=== PATIENT | male | born 1955 | race Hispanic/Latino ===

== ENCOUNTER 2017-03-29 13:41 | Emergency (ER) | payer OTHER ==
[2017-03-29] MEDS ORDERED: Sterile Water 10 ML ONE (16:47)
[2017-03-29] MEDS ORDERED: methylPREDNISolone Sod Succ/PF 125 MG/2 ML VIAL ONE (16:47)
--- NOTE | 2017-03-29 16:52 | RAD ---
RADIOGRAPH CHEST 2 VIEWS: HISTORY: 61-year-old male with acute cough. FINDINGS: There is hyperinflation of the lungs, consistent with COPD. There is no evidence of air space densit y, pneumothorax, or pulmonary edema. There is no cardiomegaly or pleural effusion. There is a small left upper lobe pulmonary scar close to the pleural surface. There are mild right apical chronic pulm onary changes. There is no interval change overall since 08-22-12. IMPRESSION: 1) No acute cardiopulmonary findings. 2) Emphysema. rae POS: [facility]
[2017-03-29 16:56] LABS: #Basophils 0.1 thou/uL (0.0-0.2); #Lymphocytes 2.2 thou/uL (1.20-3.40); #Monocytes 1.1 thou/uL (0.11-0.59); #Neutrophils 4.6 thou/uL (1.40-6.50); %Basophils 0.9 % (0.0-1.0); %Eosinophils 0.3 % (0.0-10.0); %Monocytes 13.8 % (0.0-10.0); Hemoglobin 13.6 g/dL (14.0-18.0); Mean Corpuscular HGB CONC 33.8 g/dL (32.0-36.0); Mean Corpuscular Hemoglobin 33.3 pg (27.0-31.0); Mean Corpuscular Volume 98.5 fl (80.0-94.0); Mean Platelet Volume 7.5 fL (7.4-10.4); Platelet Count 275 thou/uL (130-400); RBC Distribution Width 11.4 % (11.5-14.5); Red Blood Cell (RBC) Count 4.07 mill/uL (4.70-6.10)
[2017-03-29 17:15] LABS: CKMB 0.7 ng/mL (0-6.6); Troponin I 0.021 ng/mL (< 0.028)
[2017-03-29 18:04] LABS: ALT (SGPT) 7 U/L (8-55); AST (SGOT) 24 U/L (5-34); Albumin 3.9 g/dL (3.4-4.8); Alkaline Phosphatase 42 U/L (40-150); Anion Gap 14 mmol/L (10-20); BUN (Urea Nitrogen) 32 mg/dL (8.4-25.7); Bilirubin, Total 0.3 mg/dL (0.2-1.2); CK (CPK) 29 U/L (30-200); Calc. Creatinine Clearance 0 mL/min (70-130); Carbon Dioxide 23 mmol/L (23-31); Chloride 94 mmol/L (98-107); Estimated GFR-MDRD 31; Globulin 3.1 g/dL (2.4-3.5); Glucose 92 mg/dL (80-115); Potassium 3.2 mmol/L (3.5-5.1); Sodium 128 mmol/L (136-145)
--- NOTE | 2017-04-03 15:36 | EKG ---
Test Reason : CP Blood Pressure : / mmHG Vent. Rate : 091 BPM Atrial Rate : 091 BPM P-R Int : 120 ms QRS Dur : 084 ms QT Int : 394 ms P-R-T Axes : 054 030 074 degrees QTc Int : 484 ms Normal sinus rhythm Normal ECG Confirmed by IDANIA TYLER, LAVINIA ([id number]), field map editor PANTERA MCGINNIS ([id number]) on 04/03/2017 3:35:42 PM Referred By: Confirmed By:LAVINIA EMERSON MD
== END 2017-03-29 20:01 | disposition home or self-care (01) ==
LOC: ERS 13:41
DX: J20.9 Acute bronchitis, unspecified (principal); E86.0 Dehydration; N28.9 Disorder of kidney and ureter, unspecified; K21.9 Gastro-esophageal reflux disease without esophagitis
CPT/HCPCS: 36415; 71046; 80053; 82553; 83605; 83880; 84484; 85025; 87804; 93005; 94640; 96361; 96374; A4216; J2930; J7620

== ENCOUNTER 2019-05-16 09:27 | Emergency (ER) | payer OTHER ==
[2019-05-16 10:27] LABS: #Eosinphils 0.1 thou/uL (0.0-0.7); #Lymphocytes 0.9 thou/uL (1.20-3.40); #Monocytes 0.8 thou/uL (0.11-0.59); #Neutrophils 7.9 thou/uL (1.40-6.50); %Basophils 0.4 % (0.0-1.0); %Eosinophils 0.7 % (0.0-10.0); %Lymphocytes 9.1 % (21.0-51.0); %Monocytes 8.6 % (0.0-10.0); %Neutrophils 81.1 % (42.0-75.0); Hemoglobin 9.7 g/dL (14.0-18.0); Mean Corpuscular HGB CONC 34.1 g/dL (32.0-36.0); Mean Corpuscular Hemoglobin 34.1 pg (27.0-31.0); Platelet Count 382 thou/uL (130-400); RBC Distribution Width 11.9 % (11.5-14.5); Red Blood Cell (RBC) Count 2.85 mill/uL (4.70-6.10); White Blood Cell (WBC) Count 9.7 thou/uL (4.8-10.8)
[2019-05-16 10:40] LABS: ALT (SGPT) 8 U/L (8-55); AST (SGOT) 17 U/L (5-34); Albumin 3.3 g/dL (3.4-4.8); Alkaline Phosphatase 92 U/L (40-110); Anion Gap 15 mmol/L (10-20); BUN (Urea Nitrogen) 26 mg/dL (8.4-25.7); Bilirubin, Total 0.2 mg/dL (0.2-1.2); Calc. Creatinine Clearance 0 mL/min (70-130); Calcium 8.7 mg/dL (7.8-10.44); Carbon Dioxide 22 mmol/L (23-31); Chloride 93 mmol/L (98-107); Estimated GFR-MDRD 24; Globulin 3.9 g/dL (2.4-3.5); Glucose 81 mg/dL (80-115); Lipase 48 U/L (8-78); Potassium 3.7 mmol/L (3.5-5.1); Protein, Total 7.2 g/dL (5.8-8.1); Sodium 126 mmol/L (136-145)
[2019-05-16 11:10] LABS: Bacteria/HPF 4+ HPF (None Seen); Bilirubin Negative (Negative); Blood, Urine 2+ (Negative); Clarity Extra Turbid (Clear); Glucose, Urine (Dipstick) Normal (Negative); Leukocyte 500 Leu/uL (Negative); Nitrite Negative (Negative); Protein, Urine (Dipstick) 70 mg/dL (Neg-Trace); RBC/HPF Greater than 50 HPF (0-3); Squamous Epithelial None Seen HPF (0-3); Urobilinogen Normal mg/dL (Less than 2); WBC/HPF Greater than 50 HPF (0-3)
--- NOTE | 2019-05-16 11:52 | CT ---
CT Abdomen Pelvis WO Con 05/16/2019 11:12 AM HISTORY: Abdominal pain and diarrhea as well as vomiting for past 3 weeks. Patient reports rib pain after a fa ll. Trauma. COMPARISON: 10/03/2008 Technique: Multiple contiguous axial CT images are obtained through the abdomen and pelvis without IV contrast. Coronal reformats are provided. FINDINGS: This examination is limited for the evaluation of solid organs and vascular structures due to the lac k of intravenous contrast. Lower Chest: Visualized lung bases are clear. Vascular calcifications are seen in the coronary arteri es as well as visualized thoracic aorta. Small hiatal hernia is seen. Abdomen: Liver: Grossly normal non-enhanced CT appearance. Gallbladder: Within normal limits for CT imaging. Pancreas: Grossly normal nonenhanced CT appearance. Spleen: Grossly normal nonenhanced CT appearance. Adrenals: Grossly normal nonenhanced CT appearance. Kidneys: Renal cortical scarring bilaterally greater on the left. Extrarenal pelvis present on the ri ght with mild caliectasis, but this is likely attributable to distended urinary bladder. There is no overt hydronephrosis present. No renal calculi are seen. A subcentimeter too small to characterize hypodense lesion is seen in the inferior pole left kidney. Ureters: Right ureter is mildly prominent, but no ureteral calculus is seen. Ureteral prominence is l ikely attributable to the distended urinary bladder. Pelvis: Urinary bladder: The urinary bladder is distended and extends to the level of the L5 vertebral body. Cortes of the urinary bladder are also mildly thickened. This is nonspecific but can be seen with cystitis. Reproductive Organs: Calcifications are seen in the prostate gland. Lymph Nodes: No enlarged lymph nodes. Bowel: A few scattered colonic diverticula are seen. Loops of small bowel are normal in caliber. Appendix: Not visualized, but no secondary signs to suggest appendicitis are noted. Peritoneum: No free fluid, free air, or fluid collection. Retroperitoneum: within normal limits. Vessels: Vascular calcifications are seen in the abdominal aorta and involving the iliac arteries.. Abdominal Wall: within normal limits. Bones: Degenerative changes are seen in the spine. IMPRESSION: 1. Mild caliectasis on the right as well as mild dilatation of the right ureter. The urinary bladder is distended and likely accounts for this finding. No overt hydronephrosis is present. 2. Renal cortical scarring bilaterally. 3. Distention of the urinary bladder, and the cortes of the urinary bladder also mildly thickened. Thi s is nonspecific but can be seen with cystitis. 4. Small hiatal hernia. 5. Vascular calcifications. 6. No renal or ureteral calculi.
[2019-05-16] MEDS ORDERED: Morphine 4 MG/ML VIAL ONE (12:26)
[2019-05-16] MEDS ORDERED: Ondansetron PF 4 MG/2 ML Vial ONE (12:26)
--- NOTE | 2019-05-16 12:27 | RAD ---
CHEST 1 VIEW: Date: 05/16/2019 HISTORY: Pain. Vomiting. COMPARISON: 03/29/2017. FINDINGS: Atherosclerosis of aorta. Normal cardiac silhouette. Pulmonary vessels and hilum are normal. Costophr enic angles are clear. Hyperinflation, without consolidation or mass. No pneumothorax. Post-traumatic changes to the left ribs and right clavicle are noted. IMPRESSION: 1. Atherosclerosis. 2. Hyperinflation. 3. No acute process. POS: [facility]
[2019-05-16] MEDS ORDERED: CEFAZOLIN 1 GM VIAL ONE (14:08)
== END 2019-05-16 14:20 | disposition home or self-care (01) ==
LOC: ERS 09:27
DX: S22.31XA Fracture of one rib, right side, initial encounter for closed fracture (principal); N39.0 Urinary tract infection, site not specified; E87.1 Hypo-osmolality and hyponatremia; F10.10 Alcohol abuse, uncomplicated; K21.9 Gastro-esophageal reflux disease without esophagitis; W18.30XA Fall on same level, unspecified, initial encounter
CPT/HCPCS: 36415; 71045; 74176; 80053; 81003; 81015; 82274; 83690; 84484; 85025; 93005; 96374; 96375; J0690; J2270; J2405

== ENCOUNTER 2019-05-19 09:08 | Inpatient (IN) | payer OTHER ==
[2019-05-19 09:39] LABS: #Eosinphils 0.1 thou/uL (0.0-0.7); #Lymphocytes 0.8 thou/uL (1.20-3.40); #Neutrophils 9.1 thou/uL (1.40-6.50); %Basophils 0.4 % (0.0-1.0); %Eosinophils 1.1 % (0.0-10.0); %Monocytes 8.7 % (0.0-10.0); %Neutrophils 82.9 % (42.0-75.0); Hemoglobin 9.4 g/dL (14.0-18.0); Mean Corpuscular HGB CONC 34.5 g/dL (32.0-36.0); Mean Corpuscular Hemoglobin 34.4 pg (27.0-31.0); Mean Corpuscular Volume 99.8 fL (78.0-98.0); Mean Platelet Volume 5.5 fL (7.4-10.4); Platelet Count 306 thou/uL (130-400); RBC Distribution Width 11.8 % (11.5-14.5); Red Blood Cell (RBC) Count 2.74 mill/uL (4.70-6.10)
[2019-05-19 09:51] LABS: Nitrite Negative (Negative); Protein, Urine (Dipstick) > or equal to 300 mg/dL (Neg-Trace)
[2019-05-19 09:54] LABS: Clarity Opaque (Clear)
[2019-05-19 10:05] LABS: ALT (SGPT) 8 U/L (8-55); AST (SGOT) 20 U/L (5-34); Albumin 3.4 g/dL (3.4-4.8); Alkaline Phosphatase 109 U/L (40-110); Anion Gap 13 mmol/L (10-20); BUN (Urea Nitrogen) 20 mg/dL (8.4-25.7); Bilirubin, Total 0.3 mg/dL (0.2-1.2); Calc. Creatinine Clearance 0 mL/min (70-130); Calcium 8.6 mg/dL (7.8-10.44); Carbon Dioxide 23 mmol/L (23-31); Chloride 93 mmol/L (98-107); Estimated GFR-MDRD 25; Globulin 3.9 g/dL (2.4-3.5); Glucose 79 mg/dL (80-115); Potassium 4.3 mmol/L (3.5-5.1); Protein, Total 7.3 g/dL (5.8-8.1); Sodium 125 mmol/L (136-145)
[2019-05-19 10:13] LABS: Bilirubin Unable to Interpret (Negative); Blood, Urine Large (Negative); Glucose, Urine (Dipstick) Unable to Interpret mg/dL (Negative); Urobilinogen UNABLE TO INTERPRET mg/dL (Less than 2)
[2019-05-19 10:14] LABS: Leukocyte Small Leu/uL (Negative); RBC/HPF Greater than 50 HPF (0-3)
[2019-05-19 10:15] LABS: Bacteria/HPF None Seen HPF (None Seen)
[2019-05-19 10:16] LABS: Squamous Epithelial None Seen HPF (0-3)
--- NOTE | 2019-05-19 11:18 | CT ---
CT Stone Protocol 05/19/2019 10:49 AM HISTORY: Blood and pain when urinating. COMPARISON: 05/16/2019 Technique: Multiple contiguous axial CT images are obtained through the abdomen and pelvis without IV contrast. Coronal reformats are provided. FINDINGS: This examination is limited for the evaluation of solid organs and vascular structures due to the lac k of intravenous contrast. Lower Chest: Vascular calcification are seen in the coronary arteries. Hiatal hernia is again present . Lung bases are clear. Abdomen: Liver: Grossly normal non-enhanced CT appearance. Gallbladder: Within normal limits for CT imaging. Pancreas: Grossly normal nonenhanced CT appearance. Spleen: Grossly normal nonenhanced CT appearance. Adrenals: Grossly normal nonenhanced CT appearance. Kidneys: Bilateral [id number] hydronephrosis is present. No renal or ureteral calculi are seen bilaterally. There is renal cortical scarring seen bilaterally greater on the left. Ureters: Mild to moderate bilateral hydroureter which extends to the level of the urinary bladder.. Pelvis: Urinary bladder: Distended and extends to the L4-5 level. There is mild wall thickening of the urinar y bladder, but the urinary bladder wall thickening is less conspicuous compared to the prior exam which could be related to greater degree of distention. Reproductive Organs: Prostate calcifications are identified. Lymph Nodes: No enlarged lymph nodes. Bowel: There is colonic diverticulosis with a few phleboliths seen in the ascending colon. Loops of s mall bowel are normal in caliber. Appendix: Not definitely visualized. Peritoneum: No free fluid, free air, or fluid collection. Retroperitoneum: within normal limits. Vessels: Dense vascular calcifications are seen in the abdominal aorta and involving the iliac arteri es as well as involving the proximal renal arteries and mesenteric vessels.. Abdominal Wall: within normal limits. Bones: Degenerative changes seen in the spine. IMPRESSION: 1. Moderate bilateral hydronephrosis greater on the right with associated hydroureter. Ureters are di lated down to the level of the urinary bladder, and the urinary bladder is also prominently distended with the superior aspect of the urinary bladder extending to the L4-5 level. The hydronephr osis and hydroureter may be attributable to the distended urinary bladder. No renal or ureteral calculi are seen bilaterally. 2. Dense vascular calcifications. 3. Colonic diverticulosis 4. Small hiatal hernia.
[2019-05-19 11:45] LABS: PTT 37.3 SEC (22.9-36.1); Prothrombin Time 13.1 SEC (12.0-14.7)
[2019-05-19] MEDS ORDERED: cefTRIAXone\\ROCEPHIN 2 GM VIAL ONE (14:35)
[2019-05-19] MEDS ORDERED: Sodium Chloride 0.9% 100 ML ONE (14:36)
[2019-05-19] MEDS ORDERED: Adacel (T-DAP) 0.5 ML SYRINGE ONE (17:31)
[2019-05-19] MEDS ORDERED: Acetaminophen 500 MG TAB PO PRN (17:42)
[2019-05-19] MEDS ORDERED: Lorazepam 0.5 MG TAB PO PRN (17:42)
[2019-05-19] MEDS ORDERED: Labetalol HCl 100 MG/20 ML VIAL SLOW IVP PRN (17:42)
[2019-05-19] MEDS ORDERED: Ondansetron ODT 4 MG TAB PO PRN (17:42)
[2019-05-19] MEDS: cefTRIAXone\\ROCEPHIN 2 GM in Sodium Chloride 0.9% 100 ML IVPB SCH (18:16)
[2019-05-19] MEDS: Sodium Chloride 0.9% 1,000 ML IV SCH (18:17)
--- NOTE | 2019-05-19 18:35 | CON ---
DATE OF CONSULTATION: 05/19/2019 CONSULTING: Emergency Medicine. CONSULTED: Dr. Tan. REASON FOR CONSULTATION: Gross hematuria and urinary retention. HISTORY OF PRESENT ILLNESS: Mr. Farley is a 63-year-old white male, whom I had previously seen in 2017 for urinary issues, who presented to the emergency room with gross hematuria and inability to urinate. When I had seen him previously back in 2017, he had issues regarding weak stream with incomplete bladder emptying along with severe urgency and frequency along with urge incontinence both day and night. I had put him on Flomax at that time, which had helped his symptoms, but did not completely alleviate his symptoms at that time. He is no longer taking the Flomax secondary to running out and not following up with me in the office. When I had done urodynamics on him in the office at that time, he had demonstrations of a poorly compliant bladder with severe bladder outlet obstruction along with severe detrusor overactivity and urge incontinence. He also had unilateral mild hydronephrosis secondary to loss of his bladder compliance and obstruction. I had recommended a transurethral vaporization of the prostate at that time, and we had scheduled the procedure to be done. However, the patient became scared of the surgery and ultimately canceled and did not follow up with me thereafter. I had no contact with the patient until he presented to the emergency room today with complaints of a several-day history of worsening suprapubic pressure, abdominal pain, malaise, not feeling well along with discharging bloody urine. He had a CT scan done in the emergency room demonstrating a significantly distended bladder along with bilateral hydronephrosis with bladder wall thickening. A Muhammad catheter was placed by a nursing staff with release of approximately 600 mL of dark red bloody urine with clots. I was then consulted for further assistance regarding his issues. Currently, the patient states he is having a lot of discomfort in his pelvis. He is still having bladder spasms. His urine is grossly bloody. There does appear to be bloody urine in the tubing. He states that he is not taking the Flomax anymore, but has been having a lot of difficulty with urination recently along with urgency and frequency as well. He continues to have incontinence. CURRENT MEDICATIONS: 1. Amlodipine 5 mg p.o. daily. 2. Flomax 0.4 mg p.o. q.h.s. (currently not taking). PAST MEDICAL HISTORY: 1. Chronic kidney disease. 2. Gastroesophageal reflux disease. 3. History of tuberculosis. 4. Esophageal stricture. 5. Pyelonephritis history. 6. History of hyponatremia. 7. History of alcohol abuse. 8. History of BPH. PAST SURGICAL HISTORY: 1. Appendectomy. 2. Cholecystectomy. 3. Gallbladder tube placement. 4. Right wrist surgery. 5. Leg surgeries on the left and right. FAMILY HISTORY: Significant for cardiovascular disease. Otherwise, no other urologic issues. SOCIAL HISTORY: The patient does not smoke, but drinks alcohol in high volumes consistent with alcohol abuse. He denies any illicit drug use. ALLERGIES: NONE. REVIEW OF SYSTEMS: A 12-point review of systems was reviewed with the patient and negative other than what was commented on the HPI. PHYSICAL EXAMINATION: VITAL SIGNS: The patient's temperature is 98.4, heart rate of 120, blood pressure 129/78, respirations 18, and saturations 94% on room air. GENERAL: Appears slightly uncomfortable, but communicative and alert, appears stated age, well nourished, well developed, answering questions appropriately. HEENT: Normocephalic, atraumatic. Pupils are symmetric and round. Sclerae are nonicteric. Moist mucous membranes. Trachea midline. CARDIOVASCULAR: Sinus tachycardia. Regular rhythm. Normal S1 and S2. Symmetric pulses. CHEST: No increased work of breathing, symmetric expansion of the lungs. Clear anteriorly. ABDOMEN: Soft, nondistended, tender to palpation in the suprapubic area. No obvious organomegaly. Prior well-healed abdominal scars without hernia. No masses. No rebound or guarding. GENITOURINARY: There is a Muhammad catheter in place, approximately 18-Brazilian three-way catheter with an extended amount of tubing hanging outside the patient's penis indicating that the balloon is likely not in the right location. There is dark maroon colored blood in the tubing and dark maroon colored bloody urine in the catheter drainage bag. Testicles are bilaterally descended. The patient is uncircumcised. Penis is nonfocal. Rectal exam is deferred at this time. EXTREMITIES: No clubbing, cyanosis, or edema. SKIN: Warm and dry. No rashes or lesions. Good turgor. MUSCULOSKELETAL: No joint deformities or joint erythema noted. Full range of motion. NEUROLOGIC: Cranial nerves 2 through 12 grossly intact. No focal or sensory motor deficits identified. PSYCHIATRIC: Alert and oriented x3. Appropriate mood and affect. LABORATORY EVALUATION: Full set of labs are in the [facility] system, which I have reviewed. Of note, the patient's white count is 11, hemoglobin of 9.4, and platelet count of 306. Creatinine is currently 2.63 with a sodium of 125. Urinalysis demonstrates red urine, greater than 50 rbc's, 11 to 20 wbc's, no bacteria seen. Spectrometry is not possible due to the red opaque nature of the urine. CT noncontrast done today demonstrates moderate bilateral hydronephrosis greater on the right with associated hydroureter down to the level of the urinary bladder, which is significantly distended up to the level of L4/L5. There are no renal or ureteral calculi seen on either side. There are dense vascular calcifications, colonic diverticulosis, and a small hiatal hernia. ASSESSMENT AND PLAN: A 63-year-old white male with BPH and urinary retention with a severely overdistended bladder with known history of severe urge incontinence, frequency, urgency, bladder outlet obstruction, and poorly compliant bladder with likely bilateral hydronephrosis secondary to his urinary retention. This has currently been addressed with the catheter, which is currently misplaced. I have replaced the catheter today by removing the old catheter and placing a new 20-Brazilian three-way Muhammad catheter into the patient's bladder with 30 mL of sterile water into the balloon. CBI was initiated after a manually hand-irrigating the patient's bladder with approximately 400 mL of sterile water with removal of a small to moderate amount of clot. After clot removal, the patient's urine was light berumen red color, which was translucent. We will keep the CBI going to avoid recurrent clot formation. Once the patient's hematuria has stopped, I think the CBI can also be stopped, but the patient should keep his catheter in for at least one week before we attempt a void trial. He will be at risk for postobstructive diuresis and will be at risk for significant electrolyte abnormalities, which will need to be corrected medically. Once the electrolyte issues are managed and his hematuria has stopped, I think the patient could be discharged home, and we will need to plan a followup outpatient cystoscopy and discuss surgical intervention with either UroLift or TURP to address the patient's bladder obstruction to avoid recurrent episodes of hydronephrosis, renal failure, hematuria, or urinary infections. I will continue to follow along while the patient is in the hospital. Job ID: [id number]
[2019-05-19 20:21] VITALS: BMI 18.1
[2019-05-19] MEDS ORDERED: Diazepam 5 MG TAB PO PRN (21:55)
[2019-05-19] MEDS ORDERED: Diazepam 5 MG TAB PO SCH (22:00)
[2019-05-19] MEDS ORDERED: Thiamine HCl 200 MG/2 ML VIAL IM SCH (22:00)
--- NOTE | 2019-05-19 22:25 | HP ---
PRIMARY CARE PROVIDER: Refugio Kan. PRIMARY RUBBER MOULDING MACHINE OPERATOR: Dr. Garnett. CHIEF COMPLAINT: Abdominal pain and blood in the urine. HISTORY OF PRESENT ILLNESS: This is a 63-year-old male who presents to [facility] Emergency Department with approximately 24 to 48 hour history of increasing abdominal pain and dysuria with blood in the urine. The patient was recently evaluated on 05/17/2019, right-sided rib and abdominal pain after recent fall off a roof. The patient states he was assisting his son repair rotten boards on a roof when he apparently fell injuring his ribs. The patient was evaluated on 05/17/2019, undergoing general evaluation, receiving cefazolin, morphine, and Zofran during this evaluation as urinalysis was concerning for urinary tract infection. The patient was also noted with rib fractures, receiving tramadol and Keflex and discharged home. The patient noted increasing dysuria and blood in his urine with persistent lower abdominal pain. The patient presented on 05/19/2019, undergoing evaluation in the emergency room including CT of the abdomen and pelvis showing evidence of bilateral hydronephrosis as well as bladder distention. The patient was measured with 931 mL in his bladder post void, at which point, a Muhammad catheter was inserted. The patient was noted with gross hematuria after placement of the catheter and received IV Rocephin. The patient was evaluated by the Urology Service in the emergency room, at which point, the Muhammad catheter that was previously inserted was removed due to concern for a nonfunctioning or malfunctioning catheter. The patient was placed on a new catheter and initiated on continuous bladder irrigation. PAST MEDICAL HISTORY: 1. Chronic kidney disease stage 3. 2. Rib fracture status post mechanical fall. 3. Gastroesophageal reflux disease. 4. Benign prostatic hyperplasia. 5. Alcohol use. 6. Urinary tract infection, treated with Keflex. PAST SURGICAL HISTORY: 1. Status post appendectomy. 2. Status post oral surgery. 3. Status post bilateral lower extremity surgery, status post fall. CURRENT MEDICATIONS: 1. Tramadol 50 mg p.o. q.6 hours p.r.n. pain. 2. Keflex 500 mg p.o. t.i.d. 3. Amlodipine 5 mg p.o. daily. ALLERGIES: LACTOSE. FAMILY HISTORY: Positive for hypertension. SOCIAL HISTORY: Resides in a recreational vehicle. Drinks approximately a 6-pack a day or half pint of vodka per report. No tobacco or illicit drug use. Disabled. REVIEW OF SYSTEMS: CONSTITUTIONAL: Negative for weight loss or gain, ability to conduct usual activities. SKIN: Negative for rash, itching. EYES: Negative for double vision, pain. ENT/MOUTH: Negative for nose bleeding, neck stiffness, pain, tenderness. CARDIOVASCULAR: Negative for palpitations, dyspnea on exertion, orthopnea. RESPIRATORY: Negative for shortness of breath, wheezing, cough, hemoptysis, fever or night sweats. GASTROINTESTINAL: Negative for poor appetite, abdominal pain, heartburn, nausea, vomiting, constipation, or diarrhea. GENITOURINARY: Negative for urgency, frequency, dysuria, nocturia. MUSCULOSKELETAL: Negative for pain, swelling. NEUROLOGIC/PSYCHIATRIC: Negative for anxiety, depression. ALLERGY/IMMUNOLOGIC: Negative for skin rash, bleeding tendency. Otherwise, negative except as stated per HPI. PHYSICAL EXAMINATION: VITAL SIGNS: On admission, blood pressure 131/72, pulse 100, respiratory rate 14, temperature 99 degrees Fahrenheit, O2 saturation 97% on room air. GENERAL APPEARANCE: This is a 63-year-old male, alert and oriented x3, pleasant, in mild to moderate distress. HEENT: Pupils are equal, round, reactive to light and accommodation. Extraocular muscles are intact. No scleral icterus. No conjunctival injection. Nares are patent. OP is clear. Teeth in poor repair. NECK: Supple. No cervical adenopathy. No thyromegaly. No carotid bruits. No JVD appreciated. Cervical spine with full active passive range of motion. No meningeal signs noted. CHEST: Lungs are clear to auscultation bilaterally. CARDIOVASCULAR: S1 and S2 with tachycardia. No murmur, rub, or gallop appreciated. ABDOMEN: Rounded, soft with mild tenderness to palpation in suprapubic region. No palpable mass. Tenderness to palpation in the lower rib cage in the right upper quadrant. Bowel sounds are positive in all 4 quadrants. EXTREMITIES: Warm and dry with fair turgor. No clubbing, cyanosis, or asymmetric edema appreciated. Pulses palpable distally at the dorsalis pedis, posterior tibial, and popliteal arteries bilaterally. Capillary refill less than 2 seconds. NEUROLOGIC: Cranial nerves 2 through 12 are grossly intact. No focal or lateralizing signs appreciated. : Muhammad catheter in place with continuous bladder irrigation currently with gross hematuria in the Muhammad bag. PERTINENT LAB AND X-RAY FINDINGS: Sodium 125, potassium 4.3, chloride 93, CO2 of 23, BUN 20, creatinine 2.63, estimated GFR of 25, glucose 79, calcium 8.6. LFTs within normal limits. CBC showed a white blood cell count of 11.0, hemoglobin 9.4, hematocrit 27.3, MCV of 100, platelet count 306 with 83% neutrophils. PT 13.1, INR 1.0, PTT 37.3. Urinalysis showed positive protein, large amount of blood with greater than 50 to ytz-rpfhkuyd-py-count rbc's per high-power field. Portable chest x-ray dated 05/16/2019, showed posttraumatic changes of the left ribs and right clavicle noted. CT of the abdomen and pelvis dated 05/19/2019, showed moderate bilateral hydronephrosis, right greater than left. Prominent urinary bladder distention. Colonic diverticulosis noted. Dense vascular calcifications of the aorta. ASSESSMENT AND PLAN: 1. Gross hematuria. The patient will be admitted to the medical floor. Suspect hemorrhagic cystitis in the context of urinary distention due to obstructive uropathy and benign prostatic hyperplasia. Muhammad catheter placed with continuous bladder irrigation. Urology consulted in the emergency room and will follow during the hospital course. Continue Rocephin 2 g IV q.24 hours. Urine culture pending. Serial H and H monitoring. 2. Obstructive uropathy with bilateral hydronephrosis. See #1 above. Continue Muhammad catheter for bladder decompression. Likely will need outpatient cystoscopy and potential TURP after discharge. 3. Acute kidney injury on chronic kidney disease stage 3. Continue intravenous normal saline 100 mL/h. Avoid nephrotoxic agents and limit contrast exposure. Repeat creatinine in the a.m. 4. Acute blood loss anemia. We will continue serial H and H monitoring. Repeat CBC in the a.m. No current need for transfusion of packed red blood cells. 5. Hypertension. Confirm home antihypertensive regimen and resume when clarified. IV labetalol p.r.n. systolic greater than or equal to 170. 6. Alcohol use. Continue supportive management. Ativan 0.5 mg p.o. q.6 hours p.r.n. withdrawal symptoms. 7. Prophylaxis. SCDs while in bed. Pepcid 20 mg p.o. b.i.d. 8. Code status is full. Surrogate medical decision maker is the patient's son. Job ID: [id number]
[2019-05-20] MEDS: Sodium Chloride 0.9% 1,000 ML IV SCH (03:27)
[2019-05-20] MEDS ORDERED: Diazepam 5 MG TAB PO PRN (04:00)
[2019-05-20 06:58] LABS: Hemoglobin 8.5 g/dL (14.0-18.0); Mean Corpuscular HGB CONC 34.2 g/dL (32.0-36.0); Mean Corpuscular Hemoglobin 33.9 pg (27.0-31.0); Mean Corpuscular Volume 99.2 fL (78.0-98.0); Platelet Count 229 thou/uL (130-400); RBC Distribution Width 12.2 % (11.5-14.5); Red Blood Cell (RBC) Count 2.52 mill/uL (4.70-6.10); White Blood Cell (WBC) Count 17.3 thou/uL (4.8-10.8)
[2019-05-20 07:28] LABS: ALT (SGPT) Less than 7 U/L (8-55); AST (SGOT) 19 U/L (5-34); Albumin 2.8 g/dL (3.4-4.8); Alkaline Phosphatase 84 U/L (40-110); Anion Gap 13 mmol/L (10-20); BUN (Urea Nitrogen) 22 mg/dL (8.4-25.7); Bilirubin, Total 0.2 mg/dL (0.2-1.2); Calc. Creatinine Clearance 23 mL/min (70-130); Calcium 7.8 mg/dL (7.8-10.44); Carbon Dioxide 20 mmol/L (23-31); Chloride 96 mmol/L (98-107); Estimated GFR-MDRD 28; Globulin 3.2 g/dL (2.4-3.5); Potassium 4.1 mmol/L (3.5-5.1); Sodium 125 mmol/L (136-145)
[2019-05-20 07:39] LABS: Glucose 37 mg/dL (80-115)
[2019-05-20] MEDS ORDERED: Dextrose 50% Abboject 50 ML SYRINGE ONE (07:42)
[2019-05-20 07:43] LABS: Band 9 % (5-11); Lymphocytes 3 % (21-51); MDiff Complete? YES; Monocytes 3 % (0-10); Neutrophil 85 % (42-75); Platelet Morphology Comment Appears Adequate
[2019-05-20] MEDS: Magnesium Oxide 400 MG TAB PO SCH (08:00)
[2019-05-20] MEDS: Folic Acid 1 MG TAB PO SCH (08:00)
[2019-05-20] MEDS: Famotidine 20 MG TAB PO SCH (08:00)
[2019-05-20] MEDS: Thiamine 100 MG TAB PO SCH (08:00)
[2019-05-20] MEDS: Multivitamin W/ Minerals 1 TAB PO SCH (08:00)
[2019-05-20] MEDS ORDERED: NS 0.9% w/ 20 MEQ KCL 1,000 ML/1,000 ML BAG IV SCH (09:45)
[2019-05-20] MEDS ORDERED: Oxybutynin 5 MG TAB PO PRN (11:22)
--- NOTE | 2019-05-20 11:44 | PRG ---
DATE OF SERVICE: 05/20/2019 SUBJECTIVE: The patient is sleeping upon my arrival to the room today. He looks very comfortable. OBJECTIVE: VITAL SIGNS: Temperature 98.3, pulse 105, respirations 18, blood pressure 107/62, and saturation 93% on room air. GENERAL: Sleeping comfortably, in no apparent distress. CARDIOVASCULAR: Regular rate and rhythm. ABDOMEN: Nondistended. : Muhammad catheter in place on CBI, which is on a slow drip. Urine appears pale, pink color. EXTREMITIES: No edema. LABORATORY EVALUATION: The full set of labs are in the [email or web address] system, which I have reviewed. Of note, the patient's sodium is 125, creatinine of 2.35, and glucose of 37. Hemoglobin is 8.5. ASSESSMENT AND PLAN: A 63-year-old white male with urinary retention and bilateral hydronephrosis with acute kidney injury on chronic kidney disease and gross hematuria. The hematuria appears to be resolving with decompression of the bladder and with continuous bladder irrigation. If the urine is clear tomorrow, I may hold the continuous bladder irrigation, but I would recommend continuation of the Muhammad catheter for at least 7 days before an attempted void trial. If the patient is not able to void adequately as an outpatient, the catheter will probably need to stay in until he can have a cystoscopy and then ultimately be scheduled for a TURP or UroLift depending on which procedure would be more suitable. For now, we would recommend correction of his hypoglycemia and continue correction of his electrolyte imbalances. Postobstructive diuresis needs to be monitored. The patient's white count is significantly elevated, which may be due to manipulation and irrigations done yesterday and I would recommend continuation of antibiotic therapy until culture results are finalized. I will continue to follow along to manage his continuous bladder irrigation. Job ID: [id number]
--- NOTE | 2019-05-20 13:19 | PDOC.HOSPP ---
- Subjective Encounter Date: 05/20/19 Encounter Time: 09:05 Subjective: resting, ongoing hematuria, bloody clot in the more - Objective Vital Signs & Weight: Vital Signs (12 hours) Temp Pulse Resp BP Pulse Ox 05/20/19 12:00 98.2 F 104 H 20 107/65 95 05/20/19 08:00 98.3 F 105 H 18 107/62 93 L 05/20/19 06:34 114 H 05/20/19 04:47 122 H 20 95 05/20/19 04:25 98.9 F 128 H 20 111/62 94 L 05/20/19 03:29 100.5 F H 127 H 14 111/62 93 L Weight Admit Weight 112 lb 8 oz Weight 112 lb 8 oz I&O: 05/19/19 05/20/19 05/21/19 06:59 06:59 06:59 Intake Total 1680 240 Output Total 5600 Balance -3920 240 Result Diagrams: 05/20/19 06:27 05/20/19 06:27 Additional Labs: Accuchecks 05/20/19 07:44 POC Glucose 38 L* Hospitalist ROS - Medication Medications: Active Medications Generic Name Dose Route Start Last Admin Trade Name Freq PRN Reason Stop Dose Admin Acetaminophen 1,000 mg 05/19/19 17:42 05/20/19 03:42 Tylenol PO 1,000 mg Q6H PRN Administration Mild Pain (1-3) Famotidine 20 mg 05/20/19 09:00 05/20/19 08:00 Pepcid PO 20 mg DAILY BASHIR Administration Folic Acid 1 mg 05/20/19 09:00 05/20/19 08:00 Folvite PO 1 mg DAILY BASHIR Administration Ceftriaxone Sodium 2 gm/ 100 mls @ 200 mls/hr 05/19/19 15:00 05/19/19 18:16 Sodium Chloride IVPB Not Given Q24HR BASHIR Potassium Chloride/Sodium Chloride 1,000 ml in 1,000 mls @ 75 mls/hr 05/20/19 09:45 05/20/19 10:00 Ns 0.9% W/ 20 Meq Kcl IV 1,000 mls .[id number] BASHIR Administration Iron/Minerals/Multivitamins 1 tab 05/20/19 09:00 05/20/19 08:00 Theragran M PO 1 tab DAILY BASHIR Administration Lorazepam 0.5 mg 05/19/19 17:42 05/19/19 20:49 Ativan PO 0.5 mg Q6H PRN Administration Alcohol Withdrawal Magnesium Oxide 400 mg 05/20/19 09:00 05/20/19 08:00 Magnesium Oxide PO 400 mg DAILY BASHIR Administration Thiamine HCl 100 mg 05/20/19 09:00 05/20/19 08:00 Thiamine PO 100 mg DAILY BASHIR Administration - Exam General Appearance: awake alert Eye: PERRL ENT: normocephalic atraumatic Neck: supple, no JVD Heart: RRR, no murmur Respiratory: CTAB Gastrointestinal: soft, non-tender, non-distended, normal bowel sounds Extremities: no cyanosis Hosp A/P - Plan Hematuia b/l hydronephrosis HTN Obstructive uropathy s/s BPH Hyponatremia Hypoglycemia -hypoglycemia protocol -cont..hydration w.. NS -cw CTX abx -Keep the more for 7 days, per urology -will follow
[2019-05-20] MEDS ORDERED: D5 1/2 NS w/40 mEq KCL 1,000 ML IV SCH (13:30)
[2019-05-20] MEDS: NS 0.9% w/ 20 MEQ KCL 1,000 ML/1,000 ML BAG IV SCH ×2 (14:00→20:26)
[2019-05-20] MEDS: cefTRIAXone\\ROCEPHIN 2 GM in Sodium Chloride 0.9% 100 ML IVPB SCH (15:06)
--- NOTE | 2019-05-20 21:54 | PDOC.EVN ---
Event Note - Event Note Event Note: RN called - C diff positive Will start PO Vancomycin
[2019-05-20] MEDS: Ondansetron PF 4 MG/2 ML Vial IVP PRN (22:44)
[2019-05-20] MEDS: Vancomycin HCl 25 MG/ML Oral PO SCH (22:46)
[2019-05-21] MEDS: Vancomycin HCl 25 MG/ML Oral PO SCH ×4 (03:50→22:30)
[2019-05-21 06:04] LABS: Band 18 % (5-11); Hemoglobin 8.1 g/dL (14.0-18.0); Hypochromia SLIGHT = 6-15 cells (100X) (0-5/hpf); Lymphocytes 3 % (21-51); MDiff Complete? YES; Mean Corpuscular HGB CONC 34.4 g/dL (32.0-36.0); Mean Corpuscular Hemoglobin 34.5 pg (27.0-31.0); Mean Platelet Volume 6.1 fL (7.4-10.4); Monocytes 4 % (0-10); Neutrophil 75 % (42-75); Platelet Count 224 thou/uL (130-400); Platelet Morphology Comment Appears Adequate; RBC Distribution Width 12.2 % (11.5-14.5); Red Blood Cell (RBC) Count 2.34 mill/uL (4.70-6.10); Target Cells SLIGHT = 2-5 cells (100X) (0-1/hpf); White Blood Cell (WBC) Count 19.7 thou/uL (4.8-10.8)
[2019-05-21] MEDS: Magnesium Oxide 400 MG TAB PO SCH (07:54)
[2019-05-21] MEDS: Famotidine 20 MG TAB PO SCH (07:55)
[2019-05-21] MEDS: Thiamine 100 MG TAB PO SCH (07:55)
[2019-05-21] MEDS: Multivitamin W/ Minerals 1 TAB PO SCH (07:55)
[2019-05-21] MEDS: Saccharomyces boulardii 250 MG CAP PO SCH (07:55)
[2019-05-21] MEDS: Folic Acid 1 MG TAB PO SCH (07:55)
[2019-05-21 11:08] LABS: Anion Gap 10 mmol/L (10-20); BUN (Urea Nitrogen) 19 mg/dL (8.4-25.7); Calc. Creatinine Clearance 29 mL/min (70-130); Carbon Dioxide 19 mmol/L (23-31); Chloride 103 mmol/L (98-107); Estimated GFR-MDRD 37; Glucose 105 mg/dL (80-115); Potassium 4.4 mmol/L (3.5-5.1); Sodium 128 mmol/L (136-145)
--- NOTE | 2019-05-21 12:12 | PRG ---
DATE OF SERVICE: 05/21/2019 SUBJECTIVE: The patient is sleeping today. No complaints. He is comfortable. OBJECTIVE: VITAL SIGNS: Temperature 98.8, pulse 92, respirations 18, blood pressure 116/66, saturation 95% on room air. GENERAL: In no apparent distress, sleeping comfortably. CARDIOVASCULAR: Regular rate and rhythm. ABDOMEN: Soft, nontender, nondistended. Positive bowel sounds. : Muhammad catheter is in place currently and still on CBI at slow drip with extremely light pink urine. EXTREMITIES: No clubbing, cyanosis, or edema. LABORATORY EVALUATION: The patient's white count has risen up to 19.7, hematocrit 23.5. Creatinine has decreased down to 1.85. C diff testing was positive and the patient currently has been started on oral vancomycin for this. ASSESSMENT AND PLAN: A 63-year-old white male with Clostridium difficile colitis and urinary retention with bilateral hydronephrosis and gross hematuria, currently managed with Muhammad catheter. His Clostridium difficile colitis is currently being treated. Regarding his urinary issues, his creatinine does seem to be improving. His hematuria has almost completely stopped. I do think that continuous bladder irrigation can probably be stopped at this point. We will monitor what his urine looks like over the course of the next 24 hours. As long as his urine does not get very bloody, I think we can just leave the catheter in place, which he will need to keep in for at least 1 week at which point, we can attempt a void trial in the office. Depending on his voiding status at that time, we will either continue indwelling Muhammad catheter until he can have a definitive surgery for his prostate or the patient can learn clean intermittent catheterization. I will handle his long-term urinary issues as an outpatient, but for now, a Muhammad catheter should be maintained, but I do think the continuous bladder irrigation can be stopped. Job ID: [id number]
[2019-05-21] MEDS ORDERED: Loratadine 10 MG TAB PO SCH (12:30)
[2019-05-21] MEDS: NS 0.9% w/ 20 MEQ KCL 1,000 ML/1,000 ML BAG IV SCH ×2 (12:57→17:00)
[2019-05-21] MEDS: cefTRIAXone\\ROCEPHIN 2 GM in Sodium Chloride 0.9% 100 ML IVPB SCH (14:16)
--- NOTE | 2019-05-21 16:19 | PDOC.HOSPP ---
- Subjective Encounter Date: 05/21/19 Encounter Time: 11:15 Subjective: pt sneezing, congested, coughing; cdiff +ve, on vanc PO. - Objective Vital Signs & Weight: Vital Signs (12 hours) Temp Pulse Resp BP Pulse Ox 05/21/19 15:48 98.6 F 103 H 17 106/65 97 05/21/19 13:49 83 16 92 L 05/21/19 08:00 98.8 F 92 18 116/66 95 Weight Admit Weight 112 lb 8 oz Weight 112 lb 8 oz I&O: 05/20/19 05/21/19 05/22/19 06:59 06:59 06:59 Intake Total 1680 5160 480 Output Total 2451 5093 2000 Balance -3920 1835 1520 Result Diagrams: 05/21/19 05:04 05/21/19 10:35 Additional Labs: Accuchecks 05/20/19 20:12 POC Glucose 169 H Hospitalist ROS - Medication Medications: Active Medications Generic Name Dose Route Start Last Admin Trade Name Freq PRN Reason Stop Dose Admin Acetaminophen 1,000 mg 05/19/19 17:42 05/20/19 03:42 Tylenol PO 1,000 mg Q6H PRN Administration Mild Pain (1-3) Albuterol/Ipratropium 3 ml 05/21/19 14:30 05/21/19 13:49 Duoneb NEB 05/24/19 14:31 3 ml [id number] BASHIR Administration Famotidine 20 mg 05/20/19 09:00 05/21/19 07:55 Pepcid PO 20 mg DAILY BASHIR Administration Folic Acid 1 mg 05/20/19 09:00 05/21/19 07:55 Folvite PO 1 mg DAILY BASHIR Administration Ceftriaxone Sodium 2 gm/ 100 mls @ 200 mls/hr 05/19/19 15:00 05/21/19 14:16 Sodium Chloride IVPB 100 mls Q24HR BASHIR Administration Potassium Chloride/Sodium Chloride 1,000 ml in 1,000 mls @ 75 mls/hr 05/20/19 13:30 05/21/19 12:57 Ns 0.9% W/ 20 Meq Kcl IV Not Given .[id number] [facility] Iron/Minerals/Multivitamins 1 tab 05/20/19 09:00 05/21/19 07:55 Theragran M PO 1 tab DAILY BASHIR Administration Lorazepam 0.5 mg 05/19/19 17:42 05/19/19 20:49 Ativan PO 0.5 mg Q6H PRN Administration Alcohol Withdrawal Magnesium Oxide 400 mg 05/20/19 09:00 05/21/19 07:54 Magnesium Oxide PO 400 mg DAILY BASHIR Administration Ondansetron HCl 4 mg 05/19/19 17:42 05/20/19 22:44 Zofran IVP 4 mg Q6H PRN Administration Nausea/Vomiting Saccharomyces Boulardii 250 mg 05/21/19 09:00 05/21/19 07:55 Florastor PO 250 mg DAILY BASHIR Administration Thiamine HCl 100 mg 05/20/19 09:00 05/21/19 07:55 Thiamine PO 100 mg DAILY BASHIR Administration Vancomycin HCl 250 mg 05/20/19 22:00 05/21/19 09:59 First Vancomycin PO 250 mg Q6H BASHIR Administration - Exam General Appearance: NAD Eye: PERRL ENT: normocephalic atraumatic Neck: supple, no JVD Heart: RRR, normal peripheral pulses Respiratory: normal chest expansion, no tachypnea, rales, wheezes Gastrointestinal: soft, normal bowel sounds, no palpable masses Neurological: cranial nerve grossly intact, no focal deficits Hosp A/P - Plan Hematuia b/l hydronephrosis HTN Obstructive uropathy s/s BPH Hyponatremia Hypoglycemia -hypoglycemia protocol -cont..hydration w.. NS -cw CTX abx -Keep the more for 7 days, per urology -will follow Wbcs trending up -stool yomaira neg for E.coli strain Cdiff colitis -if wbcs keep trending up or any hemodynamic compromise, will get CT abd stat to r/o toxic megacolon -only slight improvement in Na. -cw NS.
[2019-05-21] MEDS: Ondansetron PF 4 MG/2 ML Vial IVP PRN (21:54)
[2019-05-22] MEDS: Vancomycin HCl 25 MG/ML Oral PO SCH ×4 (04:08→22:14)
[2019-05-22] MEDS: NS 0.9% w/ 20 MEQ KCL 1,000 ML/1,000 ML BAG IV SCH (04:13)
[2019-05-22 05:44] LABS: #Eosinphils 0.1 thou/uL (0.0-0.7); #Lymphocytes 1.2 thou/uL (1.20-3.40); #Monocytes 0.5 thou/uL (0.11-0.59); #Neutrophils 8.4 thou/uL (1.40-6.50); %Basophils 0.3 % (0.0-1.0); %Eosinophils 0.5 % (0.0-10.0); %Lymphocytes 11.6 % (21.0-51.0); %Monocytes 4.9 % (0.0-10.0); %Neutrophils 82.7 % (42.0-75.0); Hemoglobin 6.8 g/dL (14.0-18.0); Mean Corpuscular HGB CONC 33.2 g/dL (32.0-36.0); Mean Corpuscular Hemoglobin 33.5 pg (27.0-31.0); Mean Platelet Volume 6.1 fL (7.4-10.4); Platelet Count 206 thou/uL (130-400); RBC Distribution Width 12.3 % (11.5-14.5); Red Blood Cell (RBC) Count 2.03 mill/uL (4.70-6.10); White Blood Cell (WBC) Count 10.2 thou/uL (4.8-10.8)
[2019-05-22] MEDS: Thiamine 100 MG TAB PO SCH (08:29)
[2019-05-22] MEDS: Magnesium Oxide 400 MG TAB PO SCH (08:29)
[2019-05-22] MEDS: Saccharomyces boulardii 250 MG CAP PO SCH (08:30)
[2019-05-22] MEDS: Loratadine 10 MG TAB PO SCH (08:30)
[2019-05-22] MEDS: Multivitamin W/ Minerals 1 TAB PO SCH (08:30)
[2019-05-22] MEDS: Famotidine 20 MG TAB PO SCH (08:30)
[2019-05-22] MEDS: Folic Acid 1 MG TAB PO SCH (08:30)
[2019-05-22 09:48] LABS: Anion Gap 12 mmol/L (10-20); BUN (Urea Nitrogen) 15 mg/dL (8.4-25.7); Calc. Creatinine Clearance 29 mL/min (70-130); Calcium 7.7 mg/dL (7.8-10.44); Carbon Dioxide 17 mmol/L (23-31); Chloride 103 mmol/L (98-107); Estimated GFR-MDRD 37; Glucose 124 mg/dL (80-115); Potassium 3.9 mmol/L (3.5-5.1); Sodium 128 mmol/L (136-145)
[2019-05-22] MEDS: Sodium Chloride 0.9% 1,000 ML IV SCH ×2 (09:51→20:00)
--- NOTE | 2019-05-22 11:49 | PDOC.HOSPP ---
- Subjective Encounter Date: 05/22/19 Encounter Time: 10:50 Subjective: pt has some cough, but feels better, had 3 BMs partially watery, lives alone. I talk to for home health arrangement. - Objective Vital Signs & Weight: Vital Signs (12 hours) Temp Pulse Resp BP BP Pulse Ox 05/22/19 11:38 99.3 F 117 H 18 135/80 97 05/22/19 11:12 117 H 20 94 L 05/22/19 08:00 100 05/22/19 07:28 97.8 F 95 20 121/77 100 05/22/19 07:11 98 16 95 05/22/19 04:00 98.2 F 98 20 114/70 95 05/22/19 02:17 12 05/22/19 01:53 101 H 05/22/19 00:00 99.1 F 123 H 20 135/77 96 Weight Admit Weight 112 lb 8 oz Weight 112 lb 8 oz I&O: 05/21/19 05/22/19 05/23/19 06:59 06:59 06:59 Intake Total 5160 3580 Output Total 3325 5200 Balance 1835 -1620 Result Diagrams: 05/22/19 05:23 05/22/19 09:14 Hospitalist ROS - Medication Medications: Active Medications Generic Name Dose Route Start Last Admin Trade Name Freq PRN Reason Stop Dose Admin Acetaminophen 1,000 mg 05/19/19 17:42 05/20/19 03:42 Tylenol PO 1,000 mg Q6H PRN Administration Mild Pain (1-3) Albuterol/Ipratropium 3 ml 05/21/19 14:30 05/22/19 11:12 Duoneb NEB 05/24/19 14:31 3 ml [id number] BASHIR Administration Famotidine 20 mg 05/20/19 09:00 05/22/19 08:30 Pepcid PO 20 mg DAILY BASHIR Administration Folic Acid 1 mg 05/20/19 09:00 05/22/19 08:30 Folvite PO 1 mg DAILY BASHIR Administration Ceftriaxone Sodium 2 gm/ 100 mls @ 200 mls/hr 05/19/19 15:00 05/21/19 14:16 Sodium Chloride IVPB 100 mls Q24HR BASHIR Administration Potassium Chloride/Sodium Chloride 1,000 ml in 1,000 mls @ 75 mls/hr 05/20/19 13:30 05/22/19 04:13 Ns 0.9% W/ 20 Meq Kcl IV 1,000 mls .[id number] BASHIR Administration Sodium Chloride 1,000 mls @ 100 mls/hr 05/22/19 09:15 05/22/19 09:51 Normal Saline 0.9% IV 1,000 mls .Q10H BASHIR Administration Iron/Minerals/Multivitamins 1 tab 05/20/19 09:00 05/22/19 08:30 Theragran M PO 1 tab DAILY BASHIR Administration Loratadine 10 mg 05/22/19 09:00 05/22/19 08:30 Claritin PO 10 mg DAILY BASHIR Administration Lorazepam 0.5 mg 05/19/19 17:42 05/19/19 20:49 Ativan PO 0.5 mg Q6H PRN Administration Alcohol Withdrawal Magnesium Oxide 400 mg 05/20/19 09:00 05/22/19 08:29 Magnesium Oxide PO 400 mg DAILY BASHIR Administration Ondansetron HCl 4 mg 05/19/19 17:42 05/21/19 21:54 Zofran IVP 4 mg Q6H PRN Administration Nausea/Vomiting Saccharomyces Boulardii 250 mg 05/21/19 09:00 05/22/19 08:30 Florastor PO 250 mg DAILY BASHIR Administration Thiamine HCl 100 mg 05/20/19 09:00 05/22/19 08:29 Thiamine PO 100 mg DAILY BASHIR Administration Vancomycin HCl 250 mg 05/20/19 22:00 05/22/19 09:51 First Vancomycin PO 250 mg Q6H BASHIR Administration - Exam General Appearance: NAD, awake alert Eye: PERRL ENT: normocephalic atraumatic Neck: supple, no JVD, no thyromegaly Heart: RRR Respiratory: CTAB Gastrointestinal: soft, normal bowel sounds Neurological: cranial nerve grossly intact Hosp A/P - Plan Hematuia b/l hydronephrosis HTN Obstructive uropathy s/s BPH Hyponatremia Hypoglycemia -hypoglycemia protocol -cont..hydration w.. NS -cw CTX abx -Keep the more for 7 days, per urology -will follow Wbcs trending up -stool yomaira neg for E.coli strain Cdiff colitis -if wbcs keep trending up or any hemodynamic compromise, will get CT abd stat to r/o toxic megacolon -only slight improvement in Na. -cw NS. I talk to CM for home health arrangement as pt needs some help including making sure he is taking the meds BMs are improving for cdiff +ve; wbcs normalized. --low threshold for megacolon. plan for dc after Na normalizes -- getting IV NS. -Keep the more for 7 days and fw with urology U RINE IS MUCH CLEARED.
[2019-05-22] MEDS: cefTRIAXone\\ROCEPHIN 2 GM in Sodium Chloride 0.9% 100 ML IVPB SCH (15:09)
[2019-05-23] MEDS: Sodium Chloride 0.9% 1,000 ML IV SCH ×2 (02:03→16:10)
[2019-05-23] MEDS: Vancomycin HCl 25 MG/ML Oral PO SCH ×3 (04:50→16:54)
[2019-05-23 06:11] LABS: #Basophils 0.1 thou/uL (0.0-0.2); #Eosinphils 0.1 thou/uL (0.0-0.7); #Monocytes 0.9 thou/uL (0.11-0.59); #Neutrophils 6.6 thou/uL (1.40-6.50); %Basophils 1.2 % (0.0-1.0); %Eosinophils 1.2 % (0.0-10.0); %Lymphocytes 20.2 % (21.0-51.0); %Monocytes 9.7 % (0.0-10.0); %Neutrophils 67.7 % (42.0-75.0); Hemoglobin 8.2 g/dL (14.0-18.0); Mean Corpuscular HGB CONC 33.2 g/dL (32.0-36.0); Mean Corpuscular Hemoglobin 33.6 pg (27.0-31.0); Mean Platelet Volume 6.4 fL (7.4-10.4); Platelet Count 258 thou/uL (130-400); RBC Distribution Width 12.5 % (11.5-14.5); Red Blood Cell (RBC) Count 2.44 mill/uL (4.70-6.10); White Blood Cell (WBC) Count 9.7 thou/uL (4.8-10.8)
[2019-05-23] MEDS: Multivitamin W/ Minerals 1 TAB PO SCH (07:57)
[2019-05-23] MEDS: Saccharomyces boulardii 250 MG CAP PO SCH (07:57)
[2019-05-23] MEDS: Famotidine 20 MG TAB PO SCH (07:58)
[2019-05-23] MEDS: Loratadine 10 MG TAB PO SCH (07:58)
[2019-05-23] MEDS: Thiamine 100 MG TAB PO SCH (07:58)
[2019-05-23] MEDS: Folic Acid 1 MG TAB PO SCH (07:58)
[2019-05-23] MEDS: Magnesium Oxide 400 MG TAB PO SCH (07:58)
[2019-05-23 09:03] LABS: Anion Gap 13 mmol/L (10-20); BUN (Urea Nitrogen) 17 mg/dL (8.4-25.7); Calc. Creatinine Clearance 31 mL/min (70-130); Calcium 8.2 mg/dL (7.8-10.44); Carbon Dioxide 19 mmol/L (23-31); Chloride 106 mmol/L (98-107); Estimated GFR-MDRD 40; Glucose 72 mg/dL (80-115); Potassium 5.3 mmol/L (3.5-5.1); Sodium 133 mmol/L (136-145)
--- NOTE | 2019-05-23 10:09 | EKG ---
Test Reason : CP Blood Pressure : / mmHG Vent. Rate : 112 BPM Atrial Rate : 112 BPM P-R Int : 136 ms QRS Dur : 078 ms QT Int : 336 ms P-R-T Axes : 064 042 082 degrees QTc Int : 458 ms Sinus tachycardia Otherwise normal ECG Confirmed by MICHAELA CASTILLO ([id number]) on 05/23/2019 10:09:20 AM Referred By: DONATO Confirmed By:MICHAELA CASTILLO
--- NOTE | 2019-05-23 12:37 | PQF ---
CLINICAL DOCUMENTATION IMPROVEMENT CLARIFICATION FORM: ICD-10 Updated PLEASE DO AN ADDENDUM TO THE PROGRESS NOTE WITH ANY DOCUMENTATION UPDATES OR ADDITIONS AND CARRY THROUGH TO DC SUMMARY. THANK YOU. DATE: 05/23/19 ATTN : DR. CALZADA Please exercise your independent, professional judgment in responding to the clarification form. Clinical indicators are provided on the bottom of this form for your review Please check appropriate box(es): [ ] Sepsis due to: (Pna, UTI, gangrenous gall bladder, etc.) Due to: [ ] Device (please specify) [ ] SIRS due to non-infectious process (please specify etiology) [ ] with organ dysfunction [ ] without organ dysfunction [ ] Severe sepsis with acute organ dysfunction of: (Examples: respiratory failure, encephalopathy, acute kidney failure, other) [ ] Localized infection without sepsis [ ] Other diagnosis [ x ] Unable to determine In addition, please specify: Present on Admission (POA): [ ] Yes [ ] No [ ] Unable to determine For continuity of documentation, please document condition throughout progress notes and discharge summary. Thank You. CLINICAL INDICATORS - SIGNS / SYMPTOMS / LABS / RESULTS AND LOCATION IN MR WBC 05/19: 11.0 / 17.3 WBC 05/21: 19.7 BANDS 05/21: 18 PULSE 101-123 RISKS: CDIFF COLITIS (PROGRESS NOTE 05/22) OBSTRUCTIVE UROPATHY (PROGRESS NOTE 05/22) TREATMENT: IV ROCEPHIN (ER) IV FLUIDS (05/22-PRESENT) IV VANCOMYCIN (05/20-PRESENT) STOOL CULTURES (05/20) SAP Client Services Manager Crystal Reports Winform Viewer (This form is maintained as a part of the permanent medical record) 2014 [employer]. All Rights Reserved [email or web address] [email or web address] Office: [phone] NEELIMA
--- NOTE | 2019-05-23 12:47 | PQF ---
CLINICAL DOCUMENTATION IMPROVEMENT CLARIFICATION FORM: ICD-10 Updated PLEASE DO AN ADDENDUM TO THE PROGRESS NOTE WITH ANY DOCUMENTATION UPDATES OR ADDITIONS AND CARRY THROUGH TO DC SUMMARY. THANK YOU. Date: 05/23/19 ATTN: DR. CALZADA Please exercise your independent, professional judgment in responding to the clarification form. Clinical indicators are provided on the bottom of this form for your review Please check appropriate box(s): [ ] Protein Calorie Malnutrition: [ ] Mild [ ] Moderate [ ] Severe [ ] Other Malnutrition (please specify) __ [ ] Underweight without malnutrition [ ] Cachexia [ ] Other diagnosis [ x ] Unable to determine In addition, please specify: Present on Admission (POA): [ ] Yes [ ] No [ ] Unable to determine CLINICAL INDICATORS - SIGNS / SYMPTOMS / LABS / RESULTS AND LOCATION IN MR DIETARY NOTE 05/20: "POOR APPETITE WITH N/V/D FOR THE LAST WEEK, HAS ONLY BEEN EATING A FEW BITES OF FOOD..." "MILD MUSCLE WASTING TO TRAPEZIUS, PECTORALIS, AND TEMPORALIS, MILD FAT LOSS TO TRICEPS" BMI 18.2 RISKS: H/O ALCOHOLISM (DIETARY NOTE 05/20) CIFF COLITIS (PROGRESS NOTE 05/20) TEENA (H&P 05/19) TREATMENT: DIETARY CONSULT DAILY MVI, FOLIC ACID AND THIAMINE SUPPLEMENTATION (05/20-PRESENT) RECOMMENDATION OF NUTRITIONAL SUPPLEMENTS (DIETARY NOTE 05/20) ZOFRAN (05/19-PRESENT) Moderate Malnutrition (in acute illness) Energy Intake: <75% of estimated energy requirement for > 7 days Weight Loss: 1-2%/1 week; 5%/ 1 month; 7.5%/3 months Other: mild body fat loss; mild muscle mass loss; mild fluid accumulation; Severe Malnutrition (in acute illness) Energy Intake: < 50% of estimated energy requirement for > 5 days Weight Loss: >1-2%/1 week; >5%/1 month; >7.5%/3 months Other: moderate body fat loss; moderate muscle mass loss; moderate- severe fluid accumulation; measurably reduced internet retailer strength Moderate Malnutrition (in chronic illness) Energy Intake: <75% of estimated energy requirement for >1 month Weight Loss: 5%/1 month; 7.5%/3 months; 10%/6 months; 20%/1 year Other: mild body fat loss; mild muscle mass loss; mild fluid accumulation Severe Malnutrition (in chronic illness) Energy Intake: <75% of estimated energy requirement for >1 month Weight Loss: >5%/1 month; >7.5%/3 months; >10%/6 months; >20%/1 year Other: severe body fat loss; severe muscle mass loss; severe fluid accumulation ; measurably reduced internet retailer strength (This form is maintained as a part of the permanent medical record) 2014 [employer] All Rights Reserved [email or web address] [email or web address] Office: [phone] [facility] HOSPITALMayur
[2019-05-23] MEDS: cefTRIAXone\\ROCEPHIN 2 GM in Sodium Chloride 0.9% 100 ML IVPB SCH (15:17)
[2019-05-23 15:43] VITALS: BP 114/71; TEMP 99.4
--- NOTE | 2019-05-24 02:31 | PQF ---
SAP Printed Circuit Board Panels Plater Crystal Reports Winform Viewer KALYN GARCIAJESSICADOMINICKANAHIBRANDI [id number] [facility] 4420 [id number] CLINICAL DOCUMENTATION CLARIFICATION FORM: POST DISCHARGE Addendum to original discharge summary date: ____ Late entry note date: __ DATE: 05/24/19 ATTN: Reji Paz Please exercise your independent, professional judgment in responding to the clarification form. Clinical indicators are provided on the bottom of this form for your review Can you please further clarify the etiology of Abdominal pain and Gross hematuria? Please check appropriate box(s): [ x ] Hemorrhagic cystitis [ x] TEENA [ ] BPH [ ] Clostridium difficile colitis [ x ] Hydronephrosis [ ] Other diagnosis please specify [ ] Unable to determine In addition, please specify: Present on Admission (POA): [ ] Yes [ ] No [ ] Unable to determine For continuity of documentation, please document condition throughout progress notes and discharge summary. Thank You. CLINICAL INDICATORS - SIGNS / SYMPTOMS / LABS ED Provider pg.3- Hemorrhagic cystitis H and P pg.1- Abdominal pain and blood in the urine H and P pg.1- CT abdomen and pelvis showing evidence of bilateral hydronephrosis as well as bladder distention H and P pg.1- the patient was noted with gross hematuria after placement of the catheter H and P pg.3- TEENA on CKD 3 Hospitalist PN pg.4- b/l hydronephrosis PN 05/21- 63 years old male with clostridium difficile colitis and urinary retention with bilateral hydronephrosis and gross hematuria RISK FACTORS CKD- Consult pg.2 GERD-Consult pg.2 BPH- Consult pg.2 bladder outlet obstruction-Consult pg.2 TREATMENTS: Abdomen/Pelvis CT 05/19 IV fluids-- MAR IV antibiotics- MAR Urine Culture- Microbiology Stool Culture- Microbiology Nephrology Consult Dr. Tan 05/19 Managed with more catheter- PN pg.1 Creatinine Monitoring- Laboratory (This form is maintained as a part of the permanent medical record) 2014 [employer] All Rights Reserved [email or web address]
--- NOTE | 2019-05-24 03:38 | DIS ---
DATE OF ADMISSION: 05/19/2019 DATE OF DISCHARGE: 05/23/2019 DISCHARGE DIAGNOSES: 1. Hematuria. 2. Bilateral hydronephrosis. 3. Obstructive uropathy secondary to BPH. 4. Hyponatremia. 5. Hypoglycemia, resolved. 6. Leukocytosis secondary to above. 7. Hypertension. 8. Clostridium difficile colitis. DISCHARGE MEDICATIONS: 1. Norvasc 5 mg daily. 2. Oxybutynin 5 mg daily as needed. 3. Vancomycin 250 mg p.o. q.6h for 10 days. HOSPITAL COURSE: This is a 63-year-old male admitted with hematuria and bilateral hydronephrosis and obstructive uropathy secondary to BPH. Patient had a Muhammad. Urology evaluated him and asked to follow up with the clinic in 1 week with the Muhammad on. The patient had mild hypoglycemiv episode and that has improved. His stool cultures were negative for E coli strain. He does have a C diff positive and started on vancomycin p.o. His sodium has improved to 133 prior to discharge. His creatinine improved from 1.85 to 1.72 prior to discharge. His WBC count also normalized from 19.7 to 9.7. He received ceftriaxone during this interim. His cultures were negative. Though patient lives alone in his trailer, he has a daughter close by. The patient is ambulating and able to take care of himself with supervision from his daughter. He will be discharged today. DISCHARGE INSTRUCTIONS: Activity as tolerated. Regular diet. Follow up with Urology Clinic in 1 week. Discharge time took over 30 minutes. Job ID: [id number] MTDD
--- NOTE | 2019-05-24 09:35 | PQF ---
CLINICAL DOCUMENTATION IMPROVEMENT CLARIFICATION FORM: ICD-10 Updated PLEASE DO AN ADDENDUM TO THE PROGRESS NOTE WITH ANY DOCUMENTATION UPDATES OR ADDITIONS AND CARRY THROUGH TO DC SUMMARY. THANK YOU. DATE: 05/24/19 ATTN: DR. CALZADA Please exercise your independent, professional judgment in responding to the clarification form. Clinical indicators are provided on the bottom of this form for your review Please check appropriate box(es): [ x ] Sepsis due to: (Pna, UTI, gangrenous gall bladder, etc.) ___uti Due to: [ ] Device (please specify) [ ] Implant [ ] Graft [ ] Infusion [ ] SIRS due to non-infectious process (please specify etiology) [ ] with organ dysfunction [ ] without organ dysfunction [ ] Severe sepsis with acute organ dysfunction of: (Examples: respiratory failure, encephalopathy, acute kidney failure, other) [ ] Septic Shock [ ] Localized infection without sepsis [ ] Other diagnosis [ ] Unable to determine In addition, please specify: Present on Admission (POA): [ ] Yes [ ] No [ ] Unable to determine For continuity of documentation, please document condition throughout progress notes and discharge summary. Thank You. CLINICAL INDICATORS - SIGNS / SYMPTOMS / LABS / RESULTS AND LOCATION IN MR WBC 05/19: 11.0 / 17.3 WBC 05/21: 19.7 BANDS 05/21: 18 PULSE 101-123 RISKS: CDIFF COLITIS (PROGRESS NOTE 05/22) OBSTRUCTIVE UROPATHY (PROGRESS NOTE 05/22) TREATMENT: IV ROCEPHIN (ER) IV FLUIDS (05/22-PRESENT) IV VANCOMYCIN (05/20-PRESENT) STOOL CULTURES (05/20) SAP Metal Dresser Crystal Reports Winform Viewer (This form is maintained as a part of the permanent medical record) 2014 [email or web address]. All Rights Reserved Taylor Conlee, RN [email or web address] Office: [phone] [facility] CENTERMayur
--- NOTE | 2019-05-24 09:37 | PQF ---
CLINICAL DOCUMENTATION IMPROVEMENT CLARIFICATION FORM: ICD-10 Updated PLEASE DO AN ADDENDUM TO THE PROGRESS NOTE WITH ANY DOCUMENTATION UPDATES OR ADDITIONS AND CARRY THROUGH TO DC SUMMARY. THANK YOU. Date: 05/23/19 ATTN: DR. CALZADA Please exercise your independent, professional judgment in responding to the clarification form. Clinical indicators are provided on the bottom of this form for your review Please check appropriate box(s): [ x ] Protein Calorie Malnutrition: [ ] Mild [ x ] Moderate [ ] Severe [ ] Other Malnutrition (please specify) __ [ ] Underweight without malnutrition [ ] Cachexia [ ] Other diagnosis [ ] Unable to determine In addition, please specify: Present on Admission (POA): [ ] Yes [ ] No [ ] Unable to determine CLINICAL INDICATORS - SIGNS / SYMPTOMS / LABS / RESULTS AND LOCATION IN MR DIETARY NOTE 05/20: "POOR APPETITE WITH N/V/D FOR THE LAST WEEK, HAS ONLY BEEN EATING A FEW BITES OF FOOD..." "MILD MUSCLE WASTING TO TRAPEZIUS, PECTORALIS, AND TEMPORALIS, MILD FAT LOSS TO TRICEPS" BMI 18.2 RISKS: H/O ALCOHOLISM (DIETARY NOTE 05/20) CIFF COLITIS (PROGRESS NOTE 05/20) TEENA (H&P 05/19) TREATMENT: DIETARY CONSULT DAILY MVI, FOLIC ACID AND THIAMINE SUPPLEMENTATION (05/20-PRESENT) RECOMMENDATION OF NUTRITIONAL SUPPLEMENTS (DIETARY NOTE 05/20) ZOFRAN (05/19-PRESENT) Moderate Malnutrition (in acute illness) Energy Intake: <75% of estimated energy requirement for > 7 days Weight Loss: 1-2%/1 week; 5%/ 1 month; 7.5%/3 months Other: mild body fat loss; mild muscle mass loss; mild fluid accumulation; Severe Malnutrition (in acute illness) Energy Intake: < 50% of estimated energy requirement for > 5 days Weight Loss: >1-2%/1 week; >5%/1 month; >7.5%/3 months Other: moderate body fat loss; moderate muscle mass loss; moderate- severe fluid accumulation; measurably reduced cook chill technician strength Moderate Malnutrition (in chronic illness) Energy Intake: <75% of estimated energy requirement for >1 month Weight Loss: 5%/1 month; 7.5%/3 months; 10%/6 months; 20%/1 year Other: mild body fat loss; mild muscle mass loss; mild fluid accumulation Severe Malnutrition (in chronic illness) Energy Intake: <75% of estimated energy requirement for >1 month Weight Loss: >5%/1 month; >7.5%/3 months; >10%/6 months; >20%/1 year Other: severe body fat loss; severe muscle mass loss; severe fluid accumulation ; measurably reduced cook chill technician strength (This form is maintained as a part of the permanent medical record) 2014 [employer]. All Rights Reserved [email or web address] Office: [phone] [facility] HOSPITALMayur
== END 2019-05-23 17:47 | disposition home or self-care (01) | DRG 872 ==
LOC: ERS 09:08 → T4-B 14:47
PROVIDERS: ADMIT Family Medicine; ATTEND Family Medicine
PROC: 0T9B70Z Drainage of Bladder with Drainage Device, Via Natural or Artificial Opening (ICD-10-PCS; principal; 2019-05-19)
DX: A41.9 Sepsis, unspecified organism (principal); D62 Acute posthemorrhagic anemia; E87.1 Hypo-osmolality and hyponatremia; A04.72 Enterocolitis due to Clostridium difficile, not specified as recurrent; E44.0 Moderate protein-calorie malnutrition; Z68.1 Body mass index [BMI] 19.9 or less, adult; N13.6 Pyonephrosis; N13.8 Other obstructive and reflux uropathy; N17.9 Acute kidney failure, unspecified; R31.0 Gross hematuria; N40.1 Benign prostatic hyperplasia with lower urinary tract symptoms; K21.9 Gastro-esophageal reflux disease without esophagitis; F10.10 Alcohol abuse, uncomplicated; N18.3 Chronic kidney disease, stage 3 (moderate); N39.41 Urge incontinence; R35.0 Frequency of micturition; R33.8 Other retention of urine; R31.9 Hematuria, unspecified; I12.9 Hypertensive chronic kidney disease with stage 1 through stage 4 chronic kidney disease, or unspecified chronic kidney disease; E16.2 Hypoglycemia, unspecified; Z79.899 Other long term (current) drug therapy; Z86.11 Personal history of tuberculosis; Z90.49 Acquired absence of other specified parts of digestive tract
CPT/HCPCS: 36415; 36416; 51702; 74176; 80048; 80053; 81003; 81015; 85007; 85025; 85027; 85610; 85730; 87045; 87046; 87324; 87427; 87449; 90715; 93005; 93010; 94640; 96365; J0690; J0696; J2405; J3411; J3475; J3480; J3490; J7620

== ENCOUNTER 2019-09-04 08:25 | Outpatient (CLI) | payer OTHER ==
[2019-09-04 13:38] LABS: Bacteria/HPF 3+ HPF (None Seen); Bilirubin Negative (Negative); Blood, Urine Negative (Negative); Clarity Turbid (Clear); Glucose, Urine (Dipstick) Normal (Negative); Leukocyte 500 Leu/uL (Negative); Nitrite Negative (Negative); Protein, Urine (Dipstick) 20 mg/dL (Neg-Trace); Squamous Epithelial None Seen HPF (0-3); Urobilinogen Normal mg/dL (Less than 2); WBC/HPF 21-50 HPF (0-3)
[2019-09-04 13:40] LABS: Hemoglobin 12.3 g/dL (14.0-18.0); Mean Corpuscular Hemoglobin 32.7 pg (27.0-31.0); Mean Platelet Volume 7.6 fL (7.4-10.4); Platelet Count 251 thou/uL (130-400); RBC Distribution Width 12.3 % (11.5-14.5); Red Blood Cell (RBC) Count 3.76 mill/uL (4.70-6.10); White Blood Cell (WBC) Count 7.1 thou/uL (4.8-10.8)
[2019-09-04 13:58] LABS: Anion Gap 14 mmol/L (10-20); BUN (Urea Nitrogen) 10 mg/dL (8.4-25.7); Calc. Creatinine Clearance 0 mL/min (70-130); Calcium 8.9 mg/dL (7.8-10.44); Carbon Dioxide 26 mmol/L (23-31); Chloride 103 mmol/L (98-107); Estimated GFR-MDRD 47; Glucose 91 mg/dL (80-115); Potassium 4.3 mmol/L (3.5-5.1); Sodium 139 mmol/L (136-145)
[2019-09-04 14:13] LABS: INR-International Normal Ratio 0.9; PTT 30.6 sec (22.9-36.1); Prothrombin Time 12.5 sec (12.0-14.7)
[2019-09-04 20:18] LABS: SARS-CoV-2 MS2 Positive; SARS-CoV-2 N Gene Negative; SARS-CoV-2 S Gene Negative; SARS-CoV-2 orf1ab Negative
== END 2019-09-04 08:26 | disposition home or self-care (01) ==
LOC: LABBT 08:25
PROVIDERS: ATTEND Urology
DX: Z01.818 Encounter for other preprocedural examination (principal); Z11.59 Encounter for screening for other viral diseases; N40.1 Benign prostatic hyperplasia with lower urinary tract symptoms; R33.8 Other retention of urine; N39.41 Urge incontinence; N13.39 Other hydronephrosis; N18.4 Chronic kidney disease, stage 4 (severe)
CPT/HCPCS: 80048; 81001; 85027; 85610; 85730; 87077; 87086; 87186; 87635; U0003

== ENCOUNTER 2019-09-07 07:53 | Observation (INO) | payer OTHER ==
[2019-09-07] MEDS ORDERED: PHENYLEPHRINE-NS 100 MCG/ML 10 ML SYRINGE ONE (10:47)
[2019-09-07] MEDS ORDERED: Lidocaine 1% PF 5 ML VIAL ONE (10:47)
[2019-09-07] MEDS ORDERED: PROPOFOL 200 MG/20 ML VIAL ONE (10:47)
[2019-09-07] MEDS ORDERED: B & O ONE (11:09)
[2019-09-07] MEDS ORDERED: Levofloxacin 500 mg/D5W 100 ml Premix Bag ONE (11:10)
[2019-09-07] MEDS ORDERED: Fentanyl 100 MCG/2 ML VIAL ONE ×2 (11:12→13:40)
[2019-09-07] MEDS ORDERED: Hyoscyamine Sulfate SL 0.125 mg Tablet SL PRN (12:41)
[2019-09-07] MEDS ORDERED: diphenhydrAMINE 25 MG CAP PO PRN (12:41)
[2019-09-07] MEDS ORDERED: Acetaminophen 500 MG TAB PO PRN (12:41)
[2019-09-07] MEDS ORDERED: Morphine 2 MG/ML SYRINGE SLOW IVP PRN (12:41)
[2019-09-07] MEDS ORDERED: Mag-Al 1200 mg/1200 mg/30 ML UDCUP PO PRN (12:41)
[2019-09-07] MEDS ORDERED: Phenazopyridine HCl 97.5 MG TABLET PO PRN (12:41)
[2019-09-07] MEDS ORDERED: Oxybutynin 5 MG TAB PO PRN (12:41)
[2019-09-07] MEDS ORDERED: Ondansetron PF 4 MG/2 ML Vial IVP PRN (12:41)
[2019-09-07] MEDS ORDERED: hydrALAZINE 20 MG/ML VIAL SLOW IVP PRN (12:41)
[2019-09-07] MEDS ORDERED: Sodium Chloride 0.9% 1,000 ML IV SCH (12:45)
[2019-09-07] MEDS ORDERED: Ondansetron HCl/PF 4 MG/2 ML Vial IVP PRN (13:24)
[2019-09-07 15:40] VITALS: BMI 17.6
--- NOTE | 2019-09-07 19:27 | OP ---
DATE OF PROCEDURE: 09/07/2019 SERVICE: Urology. PREOPERATIVE DIAGNOSES: Benign prostatic hyperplasia with urinary retention. POSTOPERATIVE DIAGNOSES: Benign prostatic hyperplasia with urinary retention. PROCEDURE PERFORMED: Transurethral vaporization of prostate. INDICATIONS FOR PROCEDURE: Mr. Farley is a 63-year-old male, who initially had come in to see me in the past for urinary retention and BPH. I talked to him about doing a TURP at that time. Unfortunately, the patient did not keep his appointments and was lost to follow up. He presented back in the emergency room with bilateral hydronephrosis and urinary retention. He has had a catheter and has failed multiple void trials. I recommended that he come in for a TURP or TVP to protect his bladder and improve his ability to void. He does understand that he may have permanently damaged his bladder at this point and may not be able to void properly on his own. He elected to skip urodynamics and go straight to surgery. Risks and benefits of surgery were discussed and he has agreed to proceed forward. DESCRIPTION OF PROCEDURE: After identification of armband and verification of consent, the patient was brought back to the operating room. He underwent general anesthesia with an LMA. He was placed in dorsal lithotomy position and prepped and draped in usual sterile fashion. After appropriate time-out, a lubricated 26-Malian resectoscope sheath was placed through the urethra into the bladder. The prostate was hyperemic from indwelling catheter and the bladder showed significant cystitis cystica and severe inflammatory changes from indwelling catheter. However, there were no tumors or stones noted. The bipolar button was used to vaporize the prostate starting at the bladder neck to the verumontanum. The patient had a very high bladder neck, which was taken down using relaxing incisions at 5 and 7 o'clock at the bladder neck taking care not to injure the ureteral orifices. Vaporization of the intervening tissue was then completed with the button vaporization until circumferentially the prostate was wide open. Final inspection did not demonstrate any debris within the bladder. Both ureters were in orthotopic location, unharmed. Meticulous hemostasis was performed with the bipolar coag function and then once everything was nicely dry and open, the resectoscope was removed. A 22-Malian 3-way Muhammad catheter was placed with ease into the bladder with 30 mL of sterile water placed into the balloon. CBI was initiated and B and O suppository was placed in the catheter secured with a StatLock. He was then taken out of positioning, awakened, taken to PACU for recovery in stable condition. COMPLICATION: None. ESTIMATED BLOOD LOSS: Minimal. RETAINED TUBES AND DRAINS: A 22-Malian 3-way Muhammad catheter on CBI. SPECIMENS: None. DISPOSITION: The patient will be kept in the hospital overnight for CBI. We will then plan a voiding trial in the morning and discharge home subsequently. Job ID: [id number]
[2019-09-07] MEDS: Docusate 100 MG CAP PO SCH (20:12)
[2019-09-08 05:50] LABS: Anion Gap 9 mmol/L (10-20); BUN (Urea Nitrogen) 15 mg/dL (8.4-25.7); Calc. Creatinine Clearance 34 mL/min (70-130); Calcium 7.9 mg/dL (7.8-10.44); Carbon Dioxide 27 mmol/L (23-31); Chloride 104 mmol/L (98-107); Estimated GFR-MDRD 47; Glucose 69 mg/dL (80-115); Potassium 3.9 mmol/L (3.5-5.1); Sodium 136 mmol/L (136-145)
[2019-09-08] MEDS: Docusate 100 MG CAP PO SCH (07:53)
[2019-09-08] MEDS ORDERED: Amlodipine 5 MG TAB PO SCH (09:00)
[2019-09-08 12:13] VITALS: TEMP 98
[2019-09-08 15:53] VITALS: BP 127/72
--- NOTE | 2019-09-08 16:47 | PRG ---
DATE OF SERVICE: SUBJECTIVE: The patient states he is feeling very good. He had no bladder spasms and minimal pain. His urine has remained relatively clear all night without any problems. OBJECTIVE: VITAL SIGNS: Temperature 98, pulse 90, respirations 16, blood pressure 127/72, and saturation 99% on room air. GENERAL: No apparent distress. Awake and alert. CARDIOVASCULAR: Regular rate and rhythm. ABDOMEN: Soft, nontender, and nondistended. Positive bowel sounds. : Muhammad catheter in place with clear yellow urine. EXTREMITIES: No edema. LABORATORY EVALUATION: Full set of labs are in the [employer] system, which I have reviewed. Of note, the patient's creatinine is 1.51, which is relatively stable for this patient given his known history of chronic kidney disease. ASSESSMENT AND PLAN: This is a 63-year-old white male with benign prostatic hyperplasia, status post transurethral resection of the prostate, postoperative day 1. We will plan a void trial since his urine is clear. Assuming he voids normally, we will discharge him home without a catheter. If he cannot void, we will replace the catheter and send him home that way. I have gone over his discharge instructions. We will plan to see him back in approximately 1 to 2 weeks for postop check. Job ID: [id number]
--- NOTE | 2019-09-09 02:11 | DIS ---
DATE OF ADMISSION: 09/07/2019 DATE OF DISCHARGE: 09/08/2019 ADMITTING DIAGNOSIS: Benign prostatic hyperplasia with urinary retention. DISCHARGE DIAGNOSIS: Benign prostatic hyperplasia with urinary retention. PROCEDURE PERFORMED: Transurethral vaporization of prostate. BRIEF HISTORY: Mr. Farley is a 63-year-old white male, who previously has had urinary retention, which is longstanding. I had previously talked to him about doing a TUVP in the past, but unfortunately the patient did not follow up. He had persisting and ongoing difficulty with urination and ended up with urinary retention in the ER again with urinary tract infection and bilateral hydronephrosis. He already has evidence of chronic kidney disease. He had a Muhammad catheter placed and is now being brought in for definitive management of his prostate. The full H and P can be found in the scanned portion of the [employer] system. HOSPITAL COURSE: After surgery (please see operative note for details), the patient was admitted to the hospital for postoperative recovery. He had CBI on overnight with a Muhammad catheter, which drained extremely clear. This was turned off in the morning. The patient had a void trial, which he passed and he was discharged to home. DISPOSITION: Discharged to home. DISCHARGE CONDITION: Good. DISCHARGE MEDICATIONS: Include patient resuming all of his home medications except Flomax. He will be given prescriptions for tramadol, Colace, oxybutynin, and Pyridium for symptomatic relief. We will plan follow up in approximately 1 to 2 weeks for a postop visit. I have gone over all discharge instructions. The patient understands and was ready to be discharged home. Job ID: [id number]
== END 2019-09-08 16:09 | disposition home or self-care (01) ==
LOC: SDC 07:53 → SJJU 12:45
PROVIDERS: ADMIT Urology; ATTEND Urology
PROC: 0V507ZZ Destruction of Prostate, Via Natural or Artificial Opening (ICD-10-PCS; principal; 2019-09-07)
DX: N40.1 Benign prostatic hyperplasia with lower urinary tract symptoms (principal); R33.8 Other retention of urine; N39.41 Urge incontinence; R35.0 Frequency of micturition; R39.14 Feeling of incomplete bladder emptying; N18.4 Chronic kidney disease, stage 4 (severe); K21.9 Gastro-esophageal reflux disease without esophagitis; N13.30 Unspecified hydronephrosis; F10.10 Alcohol abuse, uncomplicated; Z79.899 Other long term (current) drug therapy; Z91.011 Allergy to milk products
CPT/HCPCS: 36415; 80048; 96361; 96374; G0378; J1956; J2001; J2704; J3010

== ENCOUNTER 2019-09-26 11:02 | Emergency (ER) | payer OTHER ==
[2019-09-26] MEDS ORDERED: Ondansetron PF 4 MG/2 ML Vial ONE ×2 (11:12→13:08)
[2019-09-26 11:44] LABS: #Eosinphils 0.6 thou/uL (0.0-0.7); #Lymphocytes 0.6 thou/uL (1.20-3.40); #Monocytes 0.6 thou/uL (0.11-0.59); #Neutrophils 4.7 thou/uL (1.40-6.50); %Basophils 0.5 % (0.0-1.0); %Eosinophils 9.2 % (0.0-10.0); %Lymphocytes 8.8 % (21.0-51.0); %Monocytes 9.5 % (0.0-10.0); Hemoglobin 12.2 g/dL (14.0-18.0); Mean Corpuscular HGB CONC 34.1 g/dL (32.0-36.0); Mean Corpuscular Hemoglobin 32.9 pg (27.0-31.0); Mean Corpuscular Volume 96.5 fL (78.0-98.0); Mean Platelet Volume 7.2 fL (7.4-10.4); Platelet Count 255 thou/uL (130-400); Red Blood Cell (RBC) Count 3.72 mill/uL (4.70-6.10); White Blood Cell (WBC) Count 6.6 thou/uL (4.8-10.8)
[2019-09-26 12:38] LABS: CK (CPK) 27 U/L (30-200); Lipase 50 U/L (8-78)
[2019-09-26 12:42] LABS: Albumin 3.4 g/dL (3.4-4.8)
[2019-09-26 12:43] LABS: Calcium 8.8 mg/dL (7.8-10.44); Chloride 93 mmol/L (98-107); Sodium 125 mmol/L (136-145)
[2019-09-26 12:44] LABS: Glucose 112 mg/dL (80-115)
[2019-09-26 12:45] LABS: CKMB 0.7 ng/mL (0-6.6); Globulin 3.6 g/dL (2.4-3.5)
[2019-09-26 12:46] LABS: Anion Gap 18 mmol/L (10-20); Bilirubin, Total 0.3 mg/dL (0.2-1.2); Carbon Dioxide 18 mmol/L (23-31)
[2019-09-26 12:47] LABS: Alkaline Phosphatase 58 U/L (40-110)
[2019-09-26 12:48] LABS: BUN (Urea Nitrogen) 22 mg/dL (8.4-25.7); Calc. Creatinine Clearance 0 mL/min (70-130); Estimated GFR-MDRD 30
[2019-09-26 12:49] LABS: AST (SGOT) 17 U/L (5-34)
[2019-09-26 12:50] LABS: ALT (SGPT) 10 U/L (8-55)
[2019-09-26 13:35] LABS: Bilirubin Negative (Negative); Blood, Urine 1+ (Negative); Clarity Clear (Clear); Glucose, Urine (Dipstick) Normal (Negative); Leukocyte 75 Leu/uL (Negative); Nitrite Negative (Negative); Protein, Urine (Dipstick) Negative (Neg-Trace); RBC/HPF 0-3 HPF (0-3); Squamous Epithelial 0-3 HPF (0-3); Urobilinogen Normal mg/dL (Less than 2); WBC/HPF 0-3 HPF (0-3)
--- NOTE | 2019-09-26 13:38 | CT ---
EXAM: CT ABDOMEN AND PELVIS HISTORY: Nausea. Vomiting. COMPARISON: [facility] 05/19/2019, 05/16/2019 Procedure: Multiple contiguous axial images were obtained and a CT of the abdomen and pelvis with IV contrast. C oronal reformats were performed. FINDINGS: Lower Chest: within normal limits. Vessels: Atherosclerosis. Heart: Minimal coronary calcifications. Abdomen: Portal vein:Patent Gallbladder: No calcified gallstones. Normal caliber wall. Liver: within normal limits. Pancreas: within normal limits. Spleen: within normal limits. Adrenals: Symmetric enhancement Kidneys: Symmetric enhancement and stable lobulation. No obstructive uropathy. Peritoneum: No ascites or free air, no fluid collection. Bowel: Limited evaluation due to the lack of oral contrast administration. No evidence of bowel obstr uction. Ileocecal junction is unremarkable. Surgically absent appendix. Scattered fecal material in a nondistended, nondilated colon. Diverticulosis, without evidence of diverticulitis. Mesentery and Retroperitoneum: No enlarged mesenteric or retroperitoneal lymph nodes. Abdominal Wall: within normal limits. Pelvis: Reproductive Organs: Reproductive organs are unremarkable. Pelvis: No mass, lymphadenopathy, free air or free fluid. Bladder: Mild mucosal thickening of the urinary bladder. Stable diverticulum along the inferior aspec t of the urinary bladder. Bones: within normal limits. IMPRESSION: 1. No acute abnormality in the abdomen or pelvis. 2. No evidence of a bowel obstruction. 3. Diverticulosis, without evidence of diverticulitis. 4. Mild mucosal thickening of the urinary bladder. Stable diverticulum at the base of the bladder. Di verticula may be at the level of the origin of the urethra.
[2019-09-26 13:43] LABS: Bacteria/HPF 1+ HPF (None Seen)
== END 2019-09-26 14:39 | disposition home or self-care (01) ==
LOC: ERS 11:02
DX: R10.9 Unspecified abdominal pain (principal); E87.1 Hypo-osmolality and hyponatremia; R11.2 Nausea with vomiting, unspecified; N39.0 Urinary tract infection, site not specified; K21.9 Gastro-esophageal reflux disease without esophagitis; Z79.899 Other long term (current) drug therapy
CPT/HCPCS: 74177; 80053; 81003; 81015; 82550; 82553; 83690; 84484; 85025; 87086; 93005; 96361; 96374; 96376; J2405

== ENCOUNTER 2021-07-04 13:54 | Outpatient (CLI) | payer MEDICARE, MEDICAID | END 2021-07-04 13:55 | disposition home or self-care (01) | LOC: BICULT 13:54 | PROVIDERS: ATTEND Urology | DX: N45.3 Epididymo-orchitis (principal) | CPT/HCPCS: 76870; 93976 ==

== ENCOUNTER 2021-10-06 07:01 | Outpatient (CLI) | payer MEDICARE, OTHER | END 2021-10-06 07:02 | disposition home or self-care (01) | LOC: BICULT 07:01 | PROVIDERS: ATTEND Urology | DX: N45.3 Epididymo-orchitis (principal) | CPT/HCPCS: 76870; 93976 ==

== ENCOUNTER 2021-12-16 13:41 | Emergency (ER) | payer MEDICARE, OTHER ==
[~2021-12-16 13:41] MED LIST: Iopamidol-370 76% 500 ML 1 ML ONE
[2021-12-16 14:36] LABS: #Basophils 0.1 thou/uL (0.0-0.2); #Eosinphils 0.5 thou/uL (0.0-0.7); #Lymphocytes 1.6 thou/uL (1.20-3.40); #Monocytes 0.2 thou/uL (0.11-0.59); #Neutrophils 2.2 thou/uL (1.40-6.50); %Eosinophils 11.5 % (0.0-10.0); %Lymphocytes 33.8 % (21.0-51.0); %Monocytes 4.7 % (0.0-10.0); Hemoglobin 11.1 g/dL (14.0-18.0); Mean Corpuscular HGB CONC 34.1 g/dL (32.0-36.0); Mean Corpuscular Hemoglobin 35.2 pg (27.0-31.0); Mean Platelet Volume 6.4 fL (7.4-10.4); Platelet Count 198 thou/uL (130-400); RBC Distribution Width 11.6 % (11.5-14.5); Red Blood Cell (RBC) Count 3.14 mill/uL (4.70-6.10); White Blood Cell (WBC) Count 4.6 thou/uL (4.8-10.8)
[2021-12-16 14:49] LABS: ALT (SGPT) 30 U/L (8-55); AST (SGOT) 71 U/L (5-34); Albumin 4.1 g/dL (3.4-4.8); Alkaline Phosphatase 75 U/L (40-110); Anion Gap 14 mmol/L (10-20); BUN (Urea Nitrogen) 24 mg/dL (8.4-25.7); Bilirubin, Total 0.3 mg/dL (0.2-1.2); Calc. Creatinine Clearance 0 mL/min (70-130); Calcium 8.5 mg/dL (7.8-10.44); Carbon Dioxide 26 mmol/L (23-31); Chloride 99 mmol/L (98-107); Estimated GFR 58; Globulin 2.9 g/dL (2.4-3.5); Glucose 82 mg/dL (80-115); Lipase 58 U/L (8-78); Potassium 3.8 mmol/L (3.5-5.1); Sodium 135 mmol/L (136-145)
[2021-12-16 15:51] LABS: SARS-CoV-2 NAA Rapid Test Not Detected (NotDetected)
[2021-12-16 17:01] LABS: Bacteria/HPF 4+ HPF (None Seen); Bilirubin Negative (Negative); Blood, Urine Negative (Negative); Clarity Clear (Clear); Glucose, Urine (Dipstick) Normal (Negative); Ketone, Urine Negative (Negative); Leukocyte 500 Leu/uL (Negative); Nitrite Negative (Negative); Protein, Urine (Dipstick) Negative (Neg-Trace); RBC/HPF 0-3 HPF (0-3); Specific Gravity, Urine 1.012 (1.002-1.036); Squamous Epithelial None Seen HPF (0-3); Urobilinogen Normal mg/dL (Less than 2); WBC/HPF 21-50 HPF (0-3)
[2021-12-16] MEDS ORDERED: Sulfameth/Trimethoprim DS 800-160mg TAB ONE (17:22)
== END 2021-12-16 17:57 | disposition home or self-care (01) ==
LOC: ERS 13:41
DX: N39.0 Urinary tract infection, site not specified (principal); R19.7 Diarrhea, unspecified; K21.9 Gastro-esophageal reflux disease without esophagitis; Z79.899 Other long term (current) drug therapy; Z20.822 Contact with and (suspected) exposure to COVID-19
CPT/HCPCS: 0240U; 74177; 80053; 82140; 83605; 83690; 84484; 85025; 87040; 93005; 96360; 99284; 36415; 81003; 81015; Q9967

== ENCOUNTER 2021-12-20 17:21 | Emergency (ER) | payer MEDICARE, OTHER ==
[2021-12-20 18:00] LABS: #Basophils 0.1 thou/uL (0.0-0.2); #Eosinphils 0.1 thou/uL (0.0-0.7); #Lymphocytes 1.4 thou/uL (1.20-3.40); #Monocytes 0.3 thou/uL (0.11-0.59); #Neutrophils 2.3 thou/uL (1.40-6.50); %Basophils 2.3 % (0.0-1.0); %Eosinophils 2.5 % (0.0-10.0); %Lymphocytes 32.7 % (21.0-51.0); %Monocytes 6.9 % (0.0-10.0); %Neutrophils 55.7 % (42.0-75.0); Mean Corpuscular HGB CONC 33.4 g/dL (32.0-36.0); Mean Corpuscular Hemoglobin 35.2 pg (27.0-31.0); Mean Platelet Volume 6.9 fL (7.4-10.4); Platelet Count 172 thou/uL (130-400); RBC Distribution Width 11.4 % (11.5-14.5); Red Blood Cell (RBC) Count 2.85 mill/uL (4.70-6.10); White Blood Cell (WBC) Count 4.2 thou/uL (4.8-10.8)
[2021-12-20] MEDS ORDERED: Ondansetron PF 4 MG/2 ML Vial ONE (18:05)
[2021-12-20 18:23] LABS: Acetaminophen Less than 10.0 mcg/mL (10.0-30.0); CK (CPK) 44 U/L (30-200); Lipase 140 U/L (8-78); Magnesium 1.8 mg/dL (1.6-2.6); Salicylate Less than 8.0 mg/dL (15.0-30.0)
[2021-12-20 18:24] LABS: ALT (SGPT) 34 U/L (8-55); AST (SGOT) 166 U/L (5-34); Albumin 3.8 g/dL (3.4-4.8); Alkaline Phosphatase 89 U/L (40-110); Anion Gap 13 mmol/L (10-20); BUN (Urea Nitrogen) 19 mg/dL (8.4-25.7); Bilirubin, Total 0.2 mg/dL (0.2-1.2); Calc. Creatinine Clearance 0 mL/min (70-130); Calcium 8.4 mg/dL (7.8-10.44); Carbon Dioxide 23 mmol/L (23-31); Chloride 105 mmol/L (98-107); Estimated GFR 36; Globulin 2.7 g/dL (2.4-3.5); Glucose 91 mg/dL (80-115); Potassium 3.7 mmol/L (3.5-5.1); Protein, Total 6.5 g/dL (5.8-8.1); Sodium 137 mmol/L (136-145)
[2021-12-20 18:28] LABS: MDiff Complete? YES; Macrocytosis SLIGHT = 6-15 cells (100X) (0-5/hpf); Platelet Morphology Comment Appears Adequate; Polychromasia SLIGHT = 2-3 cells (100X) (0-2/hpf)
[2021-12-20 18:32] LABS: Alcohol 402 mg/dL (Less than 10)
[2021-12-20 20:23] LABS: Bilirubin Negative (Negative); Blood, Urine Negative (Negative); Clarity Clear (Clear); Glucose, Urine (Dipstick) Normal (Negative); Ketone, Urine Negative (Negative); Leukocyte Negative Leu/uL (Negative); Nitrite Negative (Negative); Protein, Urine (Dipstick) Negative (Neg-Trace); Specific Gravity, Urine 1.009 (1.002-1.036); Urobilinogen Normal mg/dL (Less than 2)
== END 2021-12-20 20:53 | disposition home or self-care (01) ==
LOC: ERS 17:21
DX: E86.0 Dehydration (principal); R33.9 Retention of urine, unspecified; F10.129 Alcohol abuse with intoxication, unspecified; R19.7 Diarrhea, unspecified; R11.2 Nausea with vomiting, unspecified; K21.9 Gastro-esophageal reflux disease without esophagitis; Z79.899 Other long term (current) drug therapy
CPT/HCPCS: 36415; 71045; 74176; 80053; 80307; 81003; 82550; 83690; 83735; 84484; 85025; 93005; 96361; 96374; J2405

== ENCOUNTER 2022-01-01 16:26 | Inpatient (IN) | payer MEDICARE, MEDICAID ==
[2022-01-01 17:16] LABS: Bacteria/HPF 4+ HPF (None Seen); Bilirubin Negative (Negative); Blood, Urine 1+ (Negative); Clarity Turbid (Clear); Glucose, Urine (Dipstick) Normal (Negative); Ketone, Urine Negative (Negative); Leukocyte 500 Leu/uL (Negative); Nitrite Negative (Negative); Protein, Urine (Dipstick) 50 mg/dL (Neg-Trace); RBC/HPF 0-3 HPF (0-3); Specific Gravity, Urine 1.005 (1.002-1.036); Squamous Epithelial 0-3 HPF (0-3); Urobilinogen Normal mg/dL (Less than 2)
[2022-01-01 17:21] LABS: #Basophils 0.1 thou/uL (0.0-0.2); #Eosinphils 0.2 thou/uL (0.0-0.7); #Lymphocytes 0.9 thou/uL (1.20-3.40); #Monocytes 0.2 thou/uL (0.11-0.59); #Neutrophils 1.5 thou/uL (1.40-6.50); %Basophils 2.6 % (0.0-1.0); %Eosinophils 6.4 % (0.0-10.0); %Lymphocytes 30.9 % (21.0-51.0); %Neutrophils 54.1 % (42.0-75.0); Hemoglobin 10.8 g/dL (14.0-18.0); Mean Corpuscular HGB CONC 34.5 g/dL (32.0-36.0); Mean Corpuscular Hemoglobin 35.6 pg (27.0-31.0); RBC Distribution Width 12.7 % (11.5-14.5); Red Blood Cell (RBC) Count 3.03 mill/uL (4.70-6.10); White Blood Cell (WBC) Count 2.8 thou/uL (4.8-10.8)
[2022-01-01 17:28] LABS: Acetaminophen Less than 10.0 mcg/mL (10.0-30.0); Alcohol 368 mg/dL (Less than 10); CK (CPK) 47 U/L (30-200); PTT 30.2 sec (22.9-36.1); Prothrombin Time 13.6 sec (12.0-14.7); Salicylate Less than 8.0 mg/dL (15.0-30.0)
[2022-01-01 17:29] LABS: Amphetamine Not Detected (NotDetected); Barbiturates Screen Not Detected (NotDetected); Benzodiazepine Screen Not Detected (NotDetected); Cocaine Metabolite Screen Not Detected (NotDetected); Methadone Not Detected (NotDetected); Methamphetamine Not Detected (NotDetected); Opiate Screen Not Detected (NotDetected); Oxycodone Screen Not Detected (NotDetected); Phencyclidine (PCP) Not Detected (NotDetected); THC/Cannabinoid Screen Not Detected (NotDetected); Tricyclic Screen Not Detected (NotDetected)
[2022-01-01 17:40] LABS: MDiff Complete? YES; Macrocytosis SLIGHT = 6-15 cells (100X) (0-5/hpf); Mean Platelet Volume 7.2 fL (7.4-10.4); Platelet Count 45 thou/uL (130-400); Platelet Morphology Comment Appears Decreased; Polychromasia SLIGHT = 2-3 cells (100X) (0-2/hpf); Stomatocytes MODERATE= 6-15 cells (100X) (0-1/hpf); Target Cells SLIGHT = 2-5 cells (100X) (0-1/hpf); Tear Drops SLIGHT = 2-5 cells (100X) (0-1/hpf)
[2022-01-01 17:51] LABS: CKMB 1.1 ng/mL (0-6.6)
[2022-01-01 17:58] LABS: ALT (SGPT) 29 U/L (8-55); AST (SGOT) 122 U/L (5-34); Albumin 4.2 g/dL (3.4-4.8); Alkaline Phosphatase 139 U/L (40-110); Anion Gap 22 mmol/L (10-20); BUN (Urea Nitrogen) 8 mg/dL (8.4-25.7); Bilirubin, Total 0.9 mg/dL (0.2-1.2); Calc. Creatinine Clearance 0 mL/min (70-130); Calcium 8.8 mg/dL (7.8-10.44); Carbon Dioxide 19 mmol/L (23-31); Chloride 99 mmol/L (98-107); Estimated GFR 52; Globulin 3.4 g/dL (2.4-3.5); Glucose 129 mg/dL (80-115); Lipase 276 U/L (8-78); Magnesium 1.4 mg/dL (1.6-2.6); Protein, Total 7.6 g/dL (5.8-8.1); Sodium 137 mmol/L (136-145)
[2022-01-01 18:04] LABS: Potassium 2.9 mmol/L (3.5-5.1)
[2022-01-01] MEDS ORDERED: Potassium Bicarbonate/Cit Ac 25 MEQ TAB PO SCH (19:15)
[2022-01-01] MEDS ORDERED: Lorazepam 2 MG/ML VIAL IM PRN (19:55)
[2022-01-01] MEDS ORDERED: Acetaminophen 325 MG TAB PO PRN (19:55)
[2022-01-01] MEDS ORDERED: Pharmacy to Dose : CEFEPIME IVPB PRN (19:55)
[2022-01-01] MEDS ORDERED: Lorazepam 1 MG TAB PO PRN (19:55)
[2022-01-01] MEDS ORDERED: Electrolyte Replacement Protocol 1 EACH FS SCH (20:00)
[2022-01-01 20:09] LABS: Lactic Acid 3.5 mmol/L (0.5-2.2)
[2022-01-01 20:20] LABS: Phosphorus 2.4 mg/dL (2.3-4.7)
[2022-01-01] MEDS ORDERED: Multivit, Therapeutic 1 TAB PO SCH (20:30)
[2022-01-01] MEDS ORDERED: Folic Acid 1 MG TAB PO SCH (20:30)
[2022-01-01] MEDS ORDERED: Ondansetron PF 4 MG/2 ML Vial ONE (21:40)
[2022-01-01] MEDS: Cefepime 2 GM in Sodium Chloride 0.9% 100 ML IVPB SCH (23:10)
[2022-01-01] MEDS: Thiamine HCl 200 MG/2 ML VIAL SLOW IVP SCH (23:10)
[2022-01-01] MEDS: Sodium Chloride 0.9% 1,000 ML IV SCH (23:10)
[2022-01-01] MEDS: Ondansetron ODT 4 MG TAB PO PRN (23:11)
[2022-01-01] MEDS: Folic Acid 1 MG TAB PO SCH (23:13)
[2022-01-01] MEDS: Lorazepam 1 MG TAB PO SCH (23:32)
[2022-01-02] MEDS ORDERED: Metoprolol Tartrate 25 MG TAB PO SCH (01:00)
[2022-01-02] MEDS ORDERED: LORazepam 2 MG/ML SYRINGE IVP SCH (01:00)
[2022-01-02] MEDS ORDERED: Lorazepam 2 MG/ML VIAL SLOW IVP SCH (01:00)
[2022-01-02] MEDS ORDERED: Magnesium Sulfate In Water 4 GM in Premix Bag 1 BAG IVPB SCH (01:00)
[2022-01-02] MEDS: Lorazepam 1 MG TAB PO SCH ×4 (01:04→21:43)
[2022-01-02 04:10] LABS: #Basophils 0.1 thou/uL (0.0-0.2); #Eosinphils 0.2 thou/uL (0.0-0.7); #Lymphocytes 0.7 thou/uL (1.20-3.40); #Monocytes 0.2 thou/uL (0.11-0.59); #Neutrophils 2.3 thou/uL (1.40-6.50); %Eosinophils 4.7 % (0.0-10.0); %Monocytes 6.4 % (0.0-10.0); Hemoglobin 9.5 g/dL (14.0-18.0); Mean Corpuscular HGB CONC 34.1 g/dL (32.0-36.0); Mean Corpuscular Hemoglobin 35.9 pg (27.0-31.0); Mean Platelet Volume 9.2 fL (7.4-10.4); Platelet Count 38 thou/uL (130-400); RBC Distribution Width 12.7 % (11.5-14.5); Red Blood Cell (RBC) Count 2.63 mill/uL (4.70-6.10); White Blood Cell (WBC) Count 3.4 thou/uL (4.8-10.8)
[2022-01-02] MEDS: Sodium Chloride 0.9% 1,000 ML IV SCH (07:26)
[2022-01-02] MEDS: Folic Acid 1 MG TAB PO SCH (08:20)
[2022-01-02] MEDS: Multivit, Therapeutic 1 TAB PO SCH (08:20)
[2022-01-02] MEDS: Metoprolol Tartrate 25 MG TAB PO SCH ×2 (08:20→20:55)
[2022-01-02 08:52] LABS: Anion Gap 15 mmol/L (10-20); BUN (Urea Nitrogen) 7 mg/dL (8.4-25.7); Calc. Creatinine Clearance 48 mL/min (70-130); Calcium 8.1 mg/dL (7.8-10.44); Carbon Dioxide 22 mmol/L (23-31); Chloride 101 mmol/L (98-107); Estimated GFR 82; Glucose 77 mg/dL (80-115); Potassium 3.2 mmol/L (3.5-5.1); Sodium 135 mmol/L (136-145)
[2022-01-02] MEDS ORDERED: Potassium Chloride 20 MEQ TAB PO SCH ×2 (09:00→18:00)
[2022-01-02] MEDS: Cefepime 2 GM in Sodium Chloride 0.9% 100 ML IVPB SCH ×2 (10:47→22:54)
[2022-01-02] MEDS: Pantoprazole 40 MG VIAL IVP SCH (10:47)
[2022-01-02] MEDS: D5 0.9% NS w/ 20 mEq KCl 1,000 ML IV SCH ×2 (11:10→17:39)
[2022-01-02 14:30] LABS: Campy jejuni + coli by PCR Negative (Negative); STEC Shiga Toxin 1+2 Negative (Negative); Salmonella spp. by PCR Negative (Negative); Shigella spp + EIEC by PCR Negative (Negative)
[2022-01-02] MEDS ORDERED: Lorazepam 1 MG TAB PO PRN (19:55)
[2022-01-02] MEDS: Thiamine HCl 200 MG/2 ML VIAL SLOW IVP SCH (20:55)
[2022-01-03] MEDS: Lorazepam 1 MG TAB PO SCH ×3 (02:30→14:16)
[2022-01-03 04:07] LABS: #Eosinphils 0.1 thou/uL (0.0-0.7); #Lymphocytes 0.7 thou/uL (1.20-3.40); #Monocytes 0.2 thou/uL (0.11-0.59); #Neutrophils 2.1 thou/uL (1.40-6.50); %Basophils 1.4 % (0.0-1.0); %Eosinophils 4.5 % (0.0-10.0); %Monocytes 6.3 % (0.0-10.0); %Neutrophils 65.8 % (42.0-75.0); Mean Corpuscular HGB CONC 34.5 g/dL (32.0-36.0); Mean Corpuscular Hemoglobin 36.5 pg (27.0-31.0); Mean Platelet Volume 8.2 fL (7.4-10.4); Platelet Count 29 thou/uL (130-400); Red Blood Cell (RBC) Count 2.75 mill/uL (4.70-6.10); White Blood Cell (WBC) Count 3.2 thou/uL (4.8-10.8)
[2022-01-03] MEDS: D5 0.9% NS w/ 20 mEq KCl 1,000 ML IV SCH ×3 (04:11→17:32)
[2022-01-03 04:16] LABS: Lactic Acid 1.1 mmol/L (0.5-2.2)
[2022-01-03 04:21] LABS: Anion Gap 11 mmol/L (10-20); BUN (Urea Nitrogen) 7 mg/dL (8.4-25.7); Calc. Creatinine Clearance 47 mL/min (70-130); Calcium 8.2 mg/dL (7.8-10.44); Carbon Dioxide 22 mmol/L (23-31); Chloride 105 mmol/L (98-107); Estimated GFR 80; Glucose 105 mg/dL (80-115); Lipase 257 U/L (8-78); Magnesium 1.9 mg/dL (1.6-2.6); Potassium 3.8 mmol/L (3.5-5.1); Sodium 134 mmol/L (136-145)
[2022-01-03 04:31] LABS: ALT (SGPT) 25 U/L (8-55); AST (SGOT) 78 U/L (5-34); Albumin 3.5 g/dL (3.4-4.8); Alkaline Phosphatase 128 U/L (40-110); Anion Gap 10 mmol/L (10-20); BUN (Urea Nitrogen) 6 mg/dL (8.4-25.7); Bilirubin, Total 1.4 mg/dL (0.2-1.2); Calc. Creatinine Clearance 49 mL/min (70-130); Calcium 8.1 mg/dL (7.8-10.44); Carbon Dioxide 22 mmol/L (23-31); Chloride 106 mmol/L (98-107); Estimated GFR 83; Globulin 2.8 g/dL (2.4-3.5); Glucose 107 mg/dL (80-115); Phosphorus 1.3 mg/dL (2.3-4.7); Potassium 3.8 mmol/L (3.5-5.1); Protein, Total 6.3 g/dL (5.8-8.1); Sodium 134 mmol/L (136-145)
[2022-01-03] MEDS ORDERED: Potassium Phosphate 22 MMOL in Sodium Chloride 0.9% 250 ML 250 ML IVPB SCH (05:00)
[2022-01-03 06:09] VITALS: BMI 17.6
[2022-01-03] MEDS ORDERED: Magnesium 2 GM/50 ML(in water) 2 GM in Premix Bag 1 BAG IVPB SCH (08:00)
[2022-01-03] MEDS: Pantoprazole 40 MG VIAL IVP SCH (08:10)
[2022-01-03] MEDS: Metoprolol Tartrate 25 MG TAB PO SCH ×2 (08:11→20:58)
[2022-01-03] MEDS: Multivit, Therapeutic 1 TAB PO SCH (08:11)
[2022-01-03] MEDS: Cyanocobalamin (Vitamin B-12) 1,000 MCG TAB PO SCH (09:48)
[2022-01-03 10:09] LABS: Hep C IgG Ab Non-Reactive (NonReactive); Hep C Index 0.15 S/CO (0-0.79)
[2022-01-03] MEDS: Cefepime 2 GM in Sodium Chloride 0.9% 100 ML IVPB SCH (10:09)
[2022-01-03 10:11] LABS: HIV (1/2) Antibody/Antigen Non-Reactive (NonReactive)
[2022-01-03] MEDS ORDERED: Lorazepam 1 MG TAB PO PRN (19:55)
[2022-01-03] MEDS: Lorazepam 0.5 MG TAB PO SCH (20:57)
[2022-01-03] MEDS: Thiamine HCl 200 MG/2 ML VIAL SLOW IVP SCH (20:58)
[2022-01-03] MEDS: Cefepime 1 GM in Sodium Chloride 0.9% 100 ML IVPB SCH (22:43)
[2022-01-04] MEDS: Lorazepam 0.5 MG TAB PO SCH ×3 (02:24→14:21)
[2022-01-04] MEDS: D5 0.9% NS w/ 20 mEq KCl 1,000 ML IV SCH ×2 (04:28→11:36)
[2022-01-04 05:01] LABS: Phosphorus 1.7 mg/dL (2.3-4.7)
[2022-01-04 05:02] LABS: Anion Gap 8 mmol/L (10-20); BUN (Urea Nitrogen) 6 mg/dL (8.4-25.7); Calc. Creatinine Clearance 42 mL/min (70-130); Calcium 8.1 mg/dL (7.8-10.44); Carbon Dioxide 21 mmol/L (23-31); Chloride 108 mmol/L (98-107); Estimated GFR 68; Glucose 100 mg/dL (80-115); Lipase 219 U/L (8-78); Magnesium 1.9 mg/dL (1.6-2.6); Potassium 4.1 mmol/L (3.5-5.1); Sodium 133 mmol/L (136-145)
[2022-01-04 05:06] LABS: #Eosinphils 0.3 thou/uL (0.0-0.7); #Lymphocytes 0.9 thou/uL (1.20-3.40); #Monocytes 0.4 thou/uL (0.11-0.59); #Neutrophils 2.5 thou/uL (1.40-6.50); %Basophils 0.6 % (0.0-1.0); %Eosinophils 6.7 % (0.0-10.0); %Monocytes 8.5 % (0.0-10.0); %Neutrophils 62.1 % (42.0-75.0); Hemoglobin 8.9 g/dL (14.0-18.0); MDiff Complete? YES; Mean Corpuscular HGB CONC 33.1 g/dL (32.0-36.0); Mean Corpuscular Hemoglobin 35.8 pg (27.0-31.0); Mean Platelet Volume 8.5 fL (7.4-10.4); Platelet Count 39 thou/uL (130-400); RBC Distribution Width 13.2 % (11.5-14.5); White Blood Cell (WBC) Count 4.1 thou/uL (4.8-10.8)
[2022-01-04 05:07] LABS: Macrocytosis SLIGHT = 6-15 cells (100X) (0-5/hpf); Platelet Morphology Comment Appears Decreased
[2022-01-04] MEDS ORDERED: Potassium Phosphate 15 MMOL in Sodium Chloride 0.9% 100 ML IVPB SCH (06:00)
[2022-01-04] MEDS ORDERED: Magnesium 2 GM/50 ML(in water) 2 GM in Premix Bag 1 BAG IVPB SCH ×2 (08:00→13:00)
[2022-01-04] MEDS: Multivit, Therapeutic 1 TAB PO SCH (09:10)
[2022-01-04] MEDS: Cyanocobalamin (Vitamin B-12) 1,000 MCG TAB PO SCH (09:10)
[2022-01-04] MEDS: Metoprolol Tartrate 25 MG TAB PO SCH ×2 (09:10→21:12)
[2022-01-04] MEDS: Folic Acid 1 MG TAB PO SCH (09:11)
[2022-01-04] MEDS: Pantoprazole 40 MG VIAL IVP SCH (09:11)
[2022-01-04] MEDS: FLU VACC QS2022-23(65YR UP)/PF 240 MCG/0.7 ML SYRINGE IM ONE (09:16)
[2022-01-04] MEDS: Cefepime 1 GM in Sodium Chloride 0.9% 100 ML IVPB SCH ×2 (11:36→22:35)
[2022-01-04] MEDS ORDERED: D5 LR w/20 mEq KCL 1,000 ML IV SCH (15:30)
[2022-01-04 18:01] LABS: EliA Celiac New Method **** NEW METHOD ****; t-Transglutaminase (tTG) IgA 2.1 EliAU/mL (<7 Negative)
[2022-01-04] MEDS: D5 LR w/20 mEq KCL 1,000 ML IV SCH (21:11)
[2022-01-04] MEDS: Thiamine 100 MG TAB PO SCH (21:12)
[2022-01-05 04:16] LABS: Anion Gap 12 mmol/L (10-20); BUN (Urea Nitrogen) 6 mg/dL (8.4-25.7); Calc. Creatinine Clearance 40 mL/min (70-130); Calcium 8.6 mg/dL (7.8-10.44); Carbon Dioxide 19 mmol/L (23-31); Chloride 107 mmol/L (98-107); Estimated GFR 66; Glucose 94 mg/dL (80-115); Sodium 133 mmol/L (136-145)
[2022-01-05 04:51] LABS: #Eosinphils 0.4 thou/uL (0.0-0.7); #Monocytes 0.5 thou/uL (0.11-0.59); %Basophils 0.7 % (0.0-1.0); %Eosinophils 7.3 % (0.0-10.0); %Lymphocytes 19.5 % (21.0-51.0); %Monocytes 10.8 % (0.0-10.0); %Neutrophils 61.7 % (42.0-75.0); Hemoglobin 9.1 g/dL (14.0-18.0); Mean Corpuscular HGB CONC 33.7 g/dL (32.0-36.0); Mean Corpuscular Hemoglobin 36.8 pg (27.0-31.0); Mean Platelet Volume 8.4 fL (7.4-10.4); Platelet Count 56 thou/uL (130-400); RBC Distribution Width 13.3 % (11.5-14.5); Red Blood Cell (RBC) Count 2.46 mill/uL (4.70-6.10); White Blood Cell (WBC) Count 4.9 thou/uL (4.8-10.8)
[2022-01-05] MEDS: D5 LR w/20 mEq KCL 1,000 ML IV SCH (05:15)
[2022-01-05] MEDS: Sodium Bicarbonate Tab 325 MG TAB PO SCH ×3 (10:15→20:17)
[2022-01-05] MEDS: Cefepime 1 GM in Sodium Chloride 0.9% 100 ML IVPB SCH ×2 (10:15→22:58)
[2022-01-05] MEDS: Cyanocobalamin (Vitamin B-12) 1,000 MCG TAB PO SCH (10:16)
[2022-01-05] MEDS: Folic Acid 1 MG TAB PO SCH (10:16)
[2022-01-05] MEDS: Multivit, Therapeutic 1 TAB PO SCH (10:16)
[2022-01-05] MEDS: Pantoprazole 40 MG VIAL IVP SCH (10:16)
[2022-01-05] MEDS: Pancrelipase DR 12,000 1 CAP PO SCH ×3 (10:16→17:03)
[2022-01-05] MEDS: Metoprolol Tartrate 25 MG TAB PO SCH ×2 (10:16→20:17)
[2022-01-05] MEDS: Dextrose 5%-Lactated Ringers 1,000 ML IV SCH (12:05)
[2022-01-05 17:03] LABS: HBSAB Concentration Less than 8.00 mIU/mL; HBSAg Index 0.53 S/CO (0-0.99); Hep B Surf AB Non-Reactive (NonReactive); Hep B Surf Ag Non-Reactive S/CO (NonReactive)
[2022-01-05] MEDS: Thiamine 100 MG TAB PO SCH (20:17)
[2022-01-05] MEDS: Ondansetron ODT 4 MG TAB PO PRN (20:17)
[2022-01-06] MEDS: Dextrose 5%-Lactated Ringers 1,000 ML IV SCH ×2 (03:50→14:59)
[2022-01-06 04:41] LABS: #Basophils 0.1 thou/uL (0.0-0.2); #Eosinphils 0.2 thou/uL (0.0-0.7); #Lymphocytes 0.9 thou/uL (1.20-3.40); #Monocytes 0.7 thou/uL (0.11-0.59); #Neutrophils 2.8 thou/uL (1.40-6.50); %Basophils 1.1 % (0.0-1.0); %Eosinophils 5.2 % (0.0-10.0); %Lymphocytes 19.4 % (21.0-51.0); %Monocytes 14.5 % (0.0-10.0); %Neutrophils 59.9 % (42.0-75.0); Hemoglobin 8.1 g/dL (14.0-18.0); Mean Corpuscular HGB CONC 33.9 g/dL (32.0-36.0); Mean Corpuscular Hemoglobin 36.9 pg (27.0-31.0); Mean Platelet Volume 7.4 fL (7.4-10.4); Platelet Count 84 thou/uL (130-400); RBC Distribution Width 13.5 % (11.5-14.5); Red Blood Cell (RBC) Count 2.19 mill/uL (4.70-6.10); White Blood Cell (WBC) Count 4.7 thou/uL (4.8-10.8)
[2022-01-06 04:56] LABS: Anion Gap 9 mmol/L (10-20); BUN (Urea Nitrogen) 10 mg/dL (8.4-25.7); Calc. Creatinine Clearance 44 mL/min (70-130); Calcium 8.4 mg/dL (7.8-10.44); Carbon Dioxide 25 mmol/L (23-31); Chloride 103 mmol/L (98-107); Estimated GFR 73; Glucose 89 mg/dL (80-115); Potassium 4.4 mmol/L (3.5-5.1); Sodium 133 mmol/L (136-145)
[2022-01-06 05:11] LABS: ALT (SGPT) 29 U/L (8-55); AST (SGOT) 86 U/L (5-34); Albumin 3.1 g/dL (3.4-4.8); Alkaline Phosphatase 101 U/L (40-110); Bilirubin, Direct 0.2 mg/dL (0.1-0.3); Bilirubin, Total 0.5 mg/dL (0.2-1.2); Protein, Total 5.6 g/dL (5.8-8.1)
[2022-01-06] MEDS: Cyanocobalamin (Vitamin B-12) 1,000 MCG TAB PO SCH (08:55)
[2022-01-06] MEDS: Folic Acid 1 MG TAB PO SCH (08:55)
[2022-01-06] MEDS: Metoprolol Tartrate 25 MG TAB PO SCH ×2 (08:55→22:01)
[2022-01-06] MEDS: Sodium Bicarbonate Tab 325 MG TAB PO SCH ×3 (08:55→22:00)
[2022-01-06] MEDS: Multivit, Therapeutic 1 TAB PO SCH (08:55)
[2022-01-06] MEDS: Pancrelipase DR 12,000 1 CAP PO SCH ×3 (08:59→18:35)
[2022-01-06] MEDS: Pantoprazole 40 MG VIAL IVP SCH (09:04)
[2022-01-06] MEDS: Cefepime 1 GM in Sodium Chloride 0.9% 100 ML IVPB SCH (12:33)
[2022-01-06] MEDS: cefTRIAXone\\ROCEPHIN 1 GM in Sodium Chloride 0.9% 100 ML IVPB SCH (22:00)
[2022-01-06] MEDS: Thiamine 100 MG TAB PO SCH (22:01)
[2022-01-06] MEDS: Lorazepam 0.5 MG TAB PO PRN (22:15)
[2022-01-07 00:36] LABS: Adenovirus F 40-41 Not Detected (Not Detected); Astrovirus Not Detected (Not Detected); C. difficile toxin A+B DETECTED (Not Detected); Campylobacter by PCR Not Detected (Not Detected); Cryptosporidium Not Detected (Not Detected); Cyclospora cayetanensis Not Detected (Not Detected); Entamoeba histolytica Not Detected (Not Detected); Enteroaggregative E. coli Not Detected (Not Detected); Enteropathogenic E. coli Not Detected (Not Detected); Enterotoxigenic E. coli Not Detected (Not Detected); Giardia lamblia Not Detected (Not Detected); Norovirus GI-GII Not Detected (Not Detected); Plesiomonas shigelloides Not Detected (Not Detected); Rotavirus A Not Detected (Not Detected); Salmonella Not Detected (Not Detected); Sapovirus Not Detected (Not Detected); Shiga-toxin-producing E coli Not Detected (Not Detected); Shigella/Enteroinvasive E coli Not Detected (Not Detected); Vibrio Not Detected (Not Detected); Vibrio cholerae Not Detected (Not Detected); Yersinia enterocolitica Not Detected (Not Detected)
[2022-01-07] MEDS: cefTRIAXone\\ROCEPHIN 1 GM in Sodium Chloride 0.9% 100 ML IVPB SCH ×2 (07:57→07:58)
[2022-01-07] MEDS: Multivit, Therapeutic 1 TAB PO SCH (08:41)
[2022-01-07] MEDS: Sodium Bicarbonate Tab 325 MG TAB PO SCH ×3 (08:41→20:01)
[2022-01-07] MEDS: Pancrelipase DR 12,000 1 CAP PO SCH (08:41)
[2022-01-07] MEDS: Cyanocobalamin (Vitamin B-12) 1,000 MCG TAB PO SCH (08:41)
[2022-01-07] MEDS: Folic Acid 1 MG TAB PO SCH (08:41)
[2022-01-07] MEDS: Metoprolol Tartrate 25 MG TAB PO SCH ×2 (08:41→20:01)
[2022-01-07] MEDS: Pantoprazole 40 MG VIAL IVP SCH (08:42)
[2022-01-07] MEDS: Dextrose 5%-Lactated Ringers 1,000 ML IV SCH (08:42)
[2022-01-07] MEDS: Vancomycin HCl 125 MG/5 ML (BATCHED) UDCUP PO SCH ×3 (12:07→23:36)
[2022-01-07] MEDS: Lorazepam 0.5 MG TAB PO PRN (18:04)
[2022-01-07] MEDS: Thiamine 100 MG TAB PO SCH (20:01)
[2022-01-07] MEDS: Ondansetron ODT 4 MG TAB PO PRN (20:10)
[2022-01-08] MEDS: Ondansetron ODT 4 MG TAB PO PRN ×3 (05:08→20:19)
[2022-01-08] MEDS: Vancomycin HCl 125 MG/5 ML (BATCHED) UDCUP PO SCH ×3 (05:08→17:09)
[2022-01-08] MEDS: cefTRIAXone\\ROCEPHIN 1 GM in Sodium Chloride 0.9% 100 ML IVPB SCH (06:04)
[2022-01-08] MEDS: Saccharomyces boulardii 250 MG CAP PO SCH (10:10)
[2022-01-08] MEDS: Multivit, Therapeutic 1 TAB PO SCH (10:10)
[2022-01-08] MEDS: Cyanocobalamin (Vitamin B-12) 1,000 MCG TAB PO SCH (10:10)
[2022-01-08] MEDS: Sodium Bicarbonate Tab 325 MG TAB PO SCH ×3 (10:11→20:20)
[2022-01-08] MEDS: Amlodipine 5 MG TAB PO SCH (10:11)
[2022-01-08] MEDS: Folic Acid 1 MG TAB PO SCH (10:12)
[2022-01-08] MEDS: Lisinopril 20 MG TAB PO SCH (10:12)
[2022-01-08] MEDS: Metoprolol Tartrate 25 MG TAB PO SCH ×2 (10:12→20:20)
[2022-01-08] MEDS: Ferrous Sulfate 325 MG TAB PO SCH (10:12)
[2022-01-08] MEDS: Pantoprazole 40 MG VIAL IVP SCH (10:13)
[2022-01-08 13:35] LABS: Hemoglobin 8.2 g/dL (14.0-18.0); Mean Corpuscular HGB CONC 33.3 g/dL (32.0-36.0); Mean Corpuscular Hemoglobin 36.1 pg (27.0-31.0); Platelet Count 244 thou/uL (130-400); RBC Distribution Width 13.4 % (11.5-14.5); Red Blood Cell (RBC) Count 2.27 mill/uL (4.70-6.10); White Blood Cell (WBC) Count 5.3 thou/uL (4.8-10.8)
[2022-01-08 13:59] LABS: ALT (SGPT) 22 U/L (8-55); AST (SGOT) 45 U/L (5-34); Albumin 3.6 g/dL (3.4-4.8); Alkaline Phosphatase 101 U/L (40-110); Bilirubin, Direct 0.2 mg/dL (0.1-0.3); Bilirubin, Total 0.3 mg/dL (0.2-1.2); Protein, Total 6.7 g/dL (5.8-8.1)
[2022-01-08 14:21] LABS: Anion Gap 10 mmol/L (10-20); BUN (Urea Nitrogen) 10 mg/dL (8.4-25.7); Calc. Creatinine Clearance 40 mL/min (70-130); Calcium 8.9 mg/dL (7.8-10.44); Carbon Dioxide 30 mmol/L (23-31); Chloride 97 mmol/L (98-107); Estimated GFR 66; Glucose 87 mg/dL (80-115); Magnesium 1.4 mg/dL (1.6-2.6); Potassium 3.7 mmol/L (3.5-5.1); Sodium 133 mmol/L (136-145)
[2022-01-08 14:42] LABS: Eosinophils 6 % (0-10); Lymphocytes 15 % (21-51); MDiff Complete? YES; Macrocytosis SLIGHT = 6-15 cells (100X) (0-5/hpf); Monocytes 23 % (0-10); Neutrophil 54 % (42-75); Platelet Morphology Comment Appears Adequate; Polychromasia SLIGHT = 2-3 cells (100X) (0-2/hpf)
[2022-01-08] MEDS: FLU VACC QS2022-23(65YR UP)/PF 240 MCG/0.7 ML SYRINGE IM ONE (18:35)
[2022-01-08] MEDS: Thiamine 100 MG TAB PO SCH (20:21)
[2022-01-09] MEDS ORDERED: Magnesium Sulfate In Water 4 GM in Premix Bag 1 BAG IVPB SCH (00:15)
[2022-01-09] MEDS: Vancomycin HCl 125 MG/5 ML (BATCHED) UDCUP PO SCH ×5 (00:46→23:54)
[2022-01-09] MEDS: Acetaminophen 325 MG TAB PO PRN (03:48)
[2022-01-09] MEDS: cefTRIAXone\\ROCEPHIN 1 GM in Sodium Chloride 0.9% 100 ML IVPB SCH (06:12)
[2022-01-09 06:32] LABS: Reticulocyte Count 4.1 % (0.5-1.5)
[2022-01-09 06:43] LABS: ALT (SGPT) 19 U/L (8-55); AST (SGOT) 34 U/L (5-34); Albumin 3.4 g/dL (3.4-4.8); Alkaline Phosphatase 95 U/L (40-110); Bilirubin, Direct 0.2 mg/dL (0.1-0.3); Bilirubin, Total 0.3 mg/dL (0.2-1.2); Iron 21 ug/dL (65-175); Iron Binding Capacity, Total 196 mcg/dL (261-462); Protein, Total 6.3 g/dL (5.8-8.1)
[2022-01-09 06:45] LABS: Anion Gap 12 mmol/L (10-20); BUN (Urea Nitrogen) 10 mg/dL (8.4-25.7); Calc. Creatinine Clearance 38 mL/min (70-130); Carbon Dioxide 29 mmol/L (23-31); Chloride 99 mmol/L (98-107); Estimated GFR 61; Glucose 88 mg/dL (80-115); Magnesium 2.8 mg/dL (1.6-2.6); Potassium 4.1 mmol/L (3.5-5.1); Sodium 136 mmol/L (136-145)
[2022-01-09 06:46] LABS: Iron 22 ug/dL (65-175); Iron Binding Capacity, Total 194 mcg/dL (261-462)
[2022-01-09 06:47] LABS: Hypochromia SLIGHT = 6-15 cells (100X) (0-5/hpf); Lymphocytes 10 % (21-51); MDiff Complete? YES; Macrocytosis SLIGHT = 6-15 cells (100X) (0-5/hpf); Mean Corpuscular HGB CONC 32.5 g/dL (32.0-36.0); Mean Corpuscular Hemoglobin 35.4 pg (27.0-31.0); Mean Platelet Volume 6.9 fL (7.4-10.4); Monocytes 16 % (0-10); Neutrophil 74 % (42-75); Platelet Count 267 thou/uL (130-400); Platelet Morphology Comment Appears Adequate; RBC Distribution Width 13.6 % (11.5-14.5); Red Blood Cell (RBC) Count 2.26 mill/uL (4.70-6.10); White Blood Cell (WBC) Count 4.4 thou/uL (4.8-10.8)
[2022-01-09] MEDS: Sodium Bicarbonate Tab 325 MG TAB PO SCH ×3 (08:58→20:59)
[2022-01-09] MEDS: Folic Acid 1 MG TAB PO SCH (08:58)
[2022-01-09] MEDS: Pantoprazole 40 MG VIAL IVP SCH (08:58)
[2022-01-09] MEDS: Lisinopril 20 MG TAB PO SCH (08:58)
[2022-01-09] MEDS: Multivit, Therapeutic 1 TAB PO SCH (08:59)
[2022-01-09] MEDS: Ferrous Sulfate 325 MG TAB PO SCH (08:59)
[2022-01-09] MEDS: Metoprolol Tartrate 25 MG TAB PO SCH ×2 (08:59→21:00)
[2022-01-09] MEDS: Saccharomyces boulardii 250 MG CAP PO SCH (08:59)
[2022-01-09] MEDS: Cyanocobalamin (Vitamin B-12) 1,000 MCG TAB PO SCH (08:59)
[2022-01-09] MEDS: Amlodipine 5 MG TAB PO SCH (08:59)
[2022-01-09] MEDS: Thiamine 100 MG TAB PO SCH (21:00)
[2022-01-10] MEDS: Vancomycin HCl 125 MG/5 ML (BATCHED) UDCUP PO SCH ×4 (05:10→23:39)
[2022-01-10 07:05] LABS: Hemoglobin 8.6 g/dL (14.0-18.0); Mean Corpuscular HGB CONC 32.9 g/dL (32.0-36.0); Mean Corpuscular Hemoglobin 35.5 pg (27.0-31.0); Platelet Count 351 thou/uL (130-400); RBC Distribution Width 13.5 % (11.5-14.5); Red Blood Cell (RBC) Count 2.41 mill/uL (4.70-6.10); White Blood Cell (WBC) Count 4.4 thou/uL (4.8-10.8)
[2022-01-10 07:07] LABS: Anion Gap 12 mmol/L (10-20); BUN (Urea Nitrogen) 10 mg/dL (8.4-25.7); Calc. Creatinine Clearance 38 mL/min (70-130); Calcium 9.5 mg/dL (7.8-10.44); Carbon Dioxide 30 mmol/L (23-31); Chloride 97 mmol/L (98-107); Estimated GFR 62; Glucose 89 mg/dL (80-115); Magnesium 1.9 mg/dL (1.6-2.6); Potassium 4.6 mmol/L (3.5-5.1); Sodium 134 mmol/L (136-145)
[2022-01-10] MEDS ORDERED: Magnesium 2 GM/50 ML(in water) 2 GM in Premix Bag 1 BAG IVPB SCH (08:00)
[2022-01-10] MEDS: Amlodipine 5 MG TAB PO SCH (09:00)
[2022-01-10] MEDS: Cyanocobalamin (Vitamin B-12) 1,000 MCG TAB PO SCH (09:01)
[2022-01-10] MEDS: Sodium Bicarbonate Tab 325 MG TAB PO SCH (09:01)
[2022-01-10] MEDS: Metoprolol Tartrate 25 MG TAB PO SCH ×2 (09:01→20:27)
[2022-01-10] MEDS: Lisinopril 20 MG TAB PO SCH (09:01)
[2022-01-10] MEDS: Ferrous Sulfate 325 MG TAB PO SCH (09:01)
[2022-01-10] MEDS: Multivit, Therapeutic 1 TAB PO SCH (09:01)
[2022-01-10] MEDS: Folic Acid 1 MG TAB PO SCH (09:01)
[2022-01-10] MEDS: Saccharomyces boulardii 250 MG CAP PO SCH (09:01)
[2022-01-10] MEDS: Pantoprazole 40 MG VIAL IVP SCH (09:01)
[2022-01-10 09:08] LABS: Band 3 % (5-11); Eosinophils 9 % (0-10); Lymphocytes 24 % (21-51); MDiff Complete? YES; Monocytes 20 % (0-10); Neutrophil 44 % (42-75); Platelet Morphology Comment Appears Adequate; Polychromasia SLIGHT = 2-3 cells (100X) (0-2/hpf)
[2022-01-10] MEDS: Ondansetron ODT 4 MG TAB PO PRN (09:15)
[2022-01-10] MEDS: Acetaminophen 325 MG TAB PO PRN (17:57)
[2022-01-10] MEDS: Thiamine 100 MG TAB PO SCH (20:27)
[2022-01-11] MEDS: Vancomycin HCl 125 MG/5 ML (BATCHED) UDCUP PO SCH ×4 (05:35→23:28)
[2022-01-11 07:31] LABS: Anion Gap 12 mmol/L (10-20); BUN (Urea Nitrogen) 11 mg/dL (8.4-25.7); Calc. Creatinine Clearance 36 mL/min (70-130); Calcium 9.4 mg/dL (7.8-10.44); Carbon Dioxide 29 mmol/L (23-31); Chloride 97 mmol/L (98-107); Estimated GFR 58; Glucose 72 mg/dL (80-115); Potassium 4.2 mmol/L (3.5-5.1); Sodium 134 mmol/L (136-145)
[2022-01-11] MEDS: Saccharomyces boulardii 250 MG CAP PO SCH (07:53)
[2022-01-11] MEDS: Folic Acid 1 MG TAB PO SCH (07:53)
[2022-01-11] MEDS: Metoprolol Tartrate 25 MG TAB PO SCH ×2 (07:53→20:38)
[2022-01-11] MEDS: Lisinopril 20 MG TAB PO SCH (07:53)
[2022-01-11] MEDS: Multivit, Therapeutic 1 TAB PO SCH (07:53)
[2022-01-11] MEDS: Ferrous Sulfate 325 MG TAB PO SCH (07:53)
[2022-01-11] MEDS: Amlodipine 5 MG TAB PO SCH (07:53)
[2022-01-11] MEDS: Pantoprazole 40 MG VIAL IVP SCH (07:54)
[2022-01-11] MEDS: Cyanocobalamin (Vitamin B-12) 1,000 MCG TAB PO SCH (07:54)
[2022-01-11] MEDS: Acetaminophen 325 MG TAB PO PRN (15:33)
[2022-01-11] MEDS: Thiamine 100 MG TAB PO SCH (20:38)
[2022-01-12] MEDS: Vancomycin HCl 125 MG/5 ML (BATCHED) UDCUP PO SCH ×2 (05:27→11:41)
[2022-01-12 07:02] LABS: Anion Gap 9 mmol/L (10-20); BUN (Urea Nitrogen) 11 mg/dL (8.4-25.7); Calc. Creatinine Clearance 39 mL/min (70-130); Calcium 9.4 mg/dL (7.8-10.44); Carbon Dioxide 29 mmol/L (23-31); Chloride 98 mmol/L (98-107); Estimated GFR 63; Glucose 68 mg/dL (80-115); Potassium 4.3 mmol/L (3.5-5.1); Sodium 132 mmol/L (136-145)
[2022-01-12 08:08] VITALS: TEMP 97.8
[2022-01-12] MEDS: Metoprolol Tartrate 25 MG TAB PO SCH (08:08)
[2022-01-12] MEDS: Multivit, Therapeutic 1 TAB PO SCH (08:08)
[2022-01-12] MEDS: Cyanocobalamin (Vitamin B-12) 1,000 MCG TAB PO SCH (08:08)
[2022-01-12] MEDS: Amlodipine 5 MG TAB PO SCH (08:08)
[2022-01-12] MEDS: Ferrous Sulfate 325 MG TAB PO SCH (08:08)
[2022-01-12] MEDS: Saccharomyces boulardii 250 MG CAP PO SCH (08:08)
[2022-01-12] MEDS: Lisinopril 20 MG TAB PO SCH (08:08)
[2022-01-12 08:09] VITALS: BP 146/70
[2022-01-12] MEDS: Folic Acid 1 MG TAB PO SCH (08:09)
[2022-01-12 15:37] LABS: Fatty Acid Droplets Normal (.); Neutral Fats And/Or Soaps Normal (.)
== END 2022-01-12 12:57 | disposition home or self-care (01) | DRG 872 ==
LOC: ERS 16:26 → SUATTDRO 16:26 → 2NO 19:00 → OBSVTOIN 01-02 16:56 → T4-B 01-07 14:55
PROVIDERS: ADMIT Family Medicine; ATTEND Family Medicine
DX: A41.59 Other Gram-negative sepsis (principal); E87.20 Acidosis, unspecified; N39.0 Urinary tract infection, site not specified; R45.851 Suicidal ideations; D61.818 Other pancytopenia; A04.72 Enterocolitis due to Clostridium difficile, not specified as recurrent; E87.1 Hypo-osmolality and hyponatremia; E46 Unspecified protein-calorie malnutrition; Z68.1 Body mass index [BMI] 19.9 or less, adult; F10.239 Alcohol dependence with withdrawal, unspecified; K86.1 Other chronic pancreatitis; Z20.822 Contact with and (suspected) exposure to COVID-19; E87.6 Hypokalemia; E86.0 Dehydration; E83.42 Hypomagnesemia; Y90.8 Blood alcohol level of 240 mg/100 ml or more; E83.39 Other disorders of phosphorus metabolism; N18.9 Chronic kidney disease, unspecified; I12.9 Hypertensive chronic kidney disease with stage 1 through stage 4 chronic kidney disease, or unspecified chronic kidney disease; K21.9 Gastro-esophageal reflux disease without esophagitis; K70.30 Alcoholic cirrhosis of liver without ascites; F10.229 Alcohol dependence with intoxication, unspecified; D53.9 Nutritional anemia, unspecified; N40.1 Benign prostatic hyperplasia with lower urinary tract symptoms; R33.8 Other retention of urine; Z88.8 Allergy status to other drugs, medicaments and biological substances; Z79.899 Other long term (current) drug therapy; Z90.49 Acquired absence of other specified parts of digestive tract; Z71.41 Alcohol abuse counseling and surveillance of alcoholic; B96.1 Klebsiella pneumoniae [K. pneumoniae] as the cause of diseases classified elsewhere; B96.89 Other specified bacterial agents as the cause of diseases classified elsewhere; Z87.440 Personal history of urinary (tract) infections; E61.1 Iron deficiency
CPT/HCPCS: 36415; 76705; 80048; 80053; 80076; 80306; 80307; 81003; 81015; 82140; 82550; 82553; 82607; 82705; 82728; 83010; 83516; 83540; 83550; 83605; 83615; 83630; 83690; 83735; 84100; 84443; 84478; 84484; 85025; 85046; 85060; 85610; 85730; 86706; 86803; 87015; 87040; 87077; 87086; 87177; 87186; 87206; 87324; 87328; 87329; 87340; 87389; 87449; 87505; 87507; 87811; 90471; 90662; 93005; 96361; 96374; 96375; 96376; C9113; G0008; G0378; J0692; J0696; J2060; J2405; J3411; J3475; J3480; J3490; J7050; Q0162; U0003; U0005

== ENCOUNTER 2022-05-12 03:57 | Emergency (ER) | payer MEDICARE, MEDICAID ==
[2022-05-12 04:45] LABS: Actual Bicarbonate (HCO3v) 18 mEq/L (22-28); Base Excess -5.4 mEq/L (-2.0 to +3.0); Calcium, Ionized (venous) 0.89 mmol/L (1.16-1.32); Chloride (VBG) 90 mmol/L (98-106); Potassium (VBG) 3.79 mmol/L (3.70-5.30); Sodium 127.5 mmol/L (133-146); pH (venous) 7.42 (7.32-7.43)
[2022-05-12] MEDS ORDERED: Thiamine HCl 200 MG/2 ML VIAL SLOW IVP SCH (04:45)
[2022-05-12] MEDS ORDERED: Octreotide Acetate 500 MCG/ML VIAL ONE (04:48)
[2022-05-12] MEDS ORDERED: Pantoprazole 40 MG VIAL ONE (04:48)
[2022-05-12] MEDS ORDERED: Magnesium 2 GM/50 ML BAG (IN WATER) ONE (04:48)
[2022-05-12 04:59] LABS: Hemoglobin 12.6 g/dL (14.0-18.0); Mean Corpuscular HGB CONC 32.7 g/dL (32.0-36.0); Mean Corpuscular Hemoglobin 34.4 pg (27.0-31.0); Mean Platelet Volume 8.6 fL (7.4-10.4); Platelet Count 170 10x3/uL (130-400); RBC Distribution Width 12.8 % (11.5-14.5); Red Blood Cell (RBC) Count 3.68 mill/uL (4.70-6.10); White Blood Cell (WBC) Count 10.6 10x3/uL (4.8-10.8)
[2022-05-12 05:07] LABS: INR-International Normal Ratio 2.4; PTT 36.6 sec (22.9-36.1); Prothrombin Time 27.6 sec (12.0-14.7)
[2022-05-12 05:16] LABS: ALT (SGPT) 450 U/L (8-55); AST (SGOT) 2659 U/L (5-34); Albumin 3.6 g/dL (3.4-4.8); Alkaline Phosphatase 99 U/L (40-110); Anion Gap 29 mmol/L (10-20); BUN (Urea Nitrogen) 19 mg/dL (8.4-25.7); Bilirubin, Total 8.2 mg/dL (0.2-1.2); Calc. Creatinine Clearance 0 mL/min (70-130); Calcium 8.7 mg/dL (7.8-10.44); Carbon Dioxide 15 mmol/L (23-31); Chloride 89 mmol/L (98-107); Estimated GFR 28; Globulin 3.6 g/dL (2.4-3.5); Glucose 45 mg/dL (80-115); Potassium 4.9 mmol/L (3.5-5.1); Protein, Total 7.2 g/dL (5.8-8.1); Sodium 128 mmol/L (136-145)
[2022-05-12 05:35] LABS: #Eosinphils 0.1 thou/uL (0.0-0.7); #Lymphocytes 0.8 thou/uL (1.20-3.40); #Monocytes 0.6 thou/uL (0.11-0.59); #Neutrophils 9.1 thou/uL (1.40-6.50); %Basophils 0.3 % (0.0-1.0); %Eosinophils 0.7 % (0.0-10.0); %Lymphocytes 7.8 % (21.0-51.0); %Monocytes 5.2 % (0.0-10.0); Anisocytosis SLIGHT = 6-15 cells (100X) (0-5/hpf); MDiff Complete? YES; Macrocytosis SLIGHT = 6-15 cells (100X) (0-5/hpf); Platelet Morphology Comment Appears Adequate; Polychromasia SLIGHT = 2-3 cells (100X) (0-2/hpf)
[2022-05-12 05:38] LABS: Alcohol Less than 10 mg/dL (Less than 10); Salicylate Less than 8.0 mg/dL (15.0-30.0)
[2022-05-12] MEDS ORDERED: SODIUM CHLORIDE 0.9% IVPB SCH ×2 (06:30→16:00)
[2022-05-12] MEDS ORDERED: FOMEPIZOLE IVPB SCH ×2 (06:30→16:00)
[2022-05-12] MEDS ORDERED: ACETYLCYSTEINE IV SCH ×2 (07:00→16:00)
[2022-05-12] MEDS ORDERED: DEXTROSE 5% IV SCH ×2 (07:00→16:00)
[2022-05-12] MEDS ORDERED: WATER IV SCH ×2 (07:00→16:00)
[2022-05-12 07:15] LABS: SARS-CoV-2 NAA Rapid Test Not Detected (NotDetected)
[2022-05-12] MEDS ORDERED: Sodium Chloride 0.9% 100 ML ONE (07:19)
[2022-05-12] MEDS ORDERED: cefTRIAXone\\ROCEPHIN 2 GM VIAL ONE (07:19)
[2022-05-12 07:43] LABS: Lactic Acid 1.7 mmol/L (0.5-2.2)
[2022-05-12 08:44] LABS: Bacteria/HPF None Seen HPF (None Seen); Bilirubin 1+ (Negative); Blood, Urine Negative (Negative); Glucose, Urine (Dipstick) Normal (Negative); Ketone, Urine Trace mg/dL (Negative); Leukocyte Negative Leu/uL (Negative); Nitrite Negative (Negative); Protein, Urine (Dipstick) 30 mg/dL (Neg-Trace); RBC/HPF 0-3 HPF (0-3); Specific Gravity, Urine 1.022 (1.002-1.036); WBC/HPF 0-3 HPF (0-3); pH, Urine 5.5 (5.0-9.0)
[2022-05-12 08:46] LABS: Clarity Hazy (Clear)
[2022-05-12 08:49] LABS: Amphetamine Not Detected (NotDetected); Barbiturates Screen Not Detected (NotDetected); Benzodiazepine Screen Not Detected (NotDetected); Cocaine Metabolite Screen Not Detected (NotDetected); Methadone Not Detected (NotDetected); Methamphetamine Not Detected (NotDetected); Opiate Screen Not Detected (NotDetected); Oxycodone Screen Not Detected (NotDetected); Phencyclidine (PCP) Not Detected (NotDetected); THC/Cannabinoid Screen Detected (NotDetected); Tricyclic Screen Not Detected (NotDetected)
[2022-05-12] MEDS ORDERED: Ondansetron ODT 4 MG TAB ONE (11:49)
[2022-05-12 11:57] LABS: INR-International Normal Ratio 2.5
[2022-05-12 12:36] LABS: ALT (SGPT) 435 U/L (8-55); AST (SGOT) 2597 U/L (5-34); Albumin 3.8 g/dL (3.4-4.8); Alkaline Phosphatase 99 U/L (40-110); Anion Gap 29 mmol/L (10-20); BUN (Urea Nitrogen) 18 mg/dL (8.4-25.7); Bilirubin, Total 8.3 mg/dL (0.2-1.2); Calc. Creatinine Clearance 0 mL/min (70-130); Calcium 8.6 mg/dL (7.8-10.44); Carbon Dioxide 15 mmol/L (23-31); Chloride 90 mmol/L (98-107); Estimated GFR 29; Globulin 2.9 g/dL (2.4-3.5); Potassium 3.6 mmol/L (3.5-5.1); Protein, Total 6.7 g/dL (5.8-8.1); Sodium 130 mmol/L (136-145)
[2022-05-12 12:39] LABS: Glucose 44 mg/dL (80-115)
[2022-05-12] MEDS ORDERED: Ondansetron PF 4 MG/2 ML Vial ONE (15:52)
[2022-05-12 23:54] LABS: INR-International Normal Ratio 2.1; PTT 36.3 sec (22.9-36.1); Prothrombin Time 24.5 sec (12.0-14.7)
[2022-05-13 00:07] LABS: ALT (SGPT) 277 U/L (8-55); AST (SGOT) 1048 U/L (5-34); Alkaline Phosphatase 73 U/L (40-110); Anion Gap 18 mmol/L (10-20); BUN (Urea Nitrogen) 20 mg/dL (8.4-25.7); Bilirubin, Total 7.4 mg/dL (0.2-1.2); Calc. Creatinine Clearance 0 mL/min (70-130); Calcium 7.5 mg/dL (7.8-10.44); Carbon Dioxide 20 mmol/L (23-31); Chloride 90 mmol/L (98-107); Estimated GFR 33; Globulin 2.8 g/dL (2.4-3.5); Glucose 200 mg/dL (80-115); Lipase 299 U/L (8-78); Potassium 2.9 mmol/L (3.5-5.1); Protein, Total 5.8 g/dL (5.8-8.1); Sodium 125 mmol/L (136-145)
[2022-05-13] MEDS ORDERED: WATER IV SCH ×2 (01:00)
[2022-05-13] MEDS ORDERED: ACETYLCYSTEINE IV SCH ×2 (01:00)
[2022-05-13] MEDS ORDERED: DEXTROSE 5% IV SCH ×2 (01:00)
[2022-05-13 05:32] LABS: Acetaminophen Less than 10.0 mcg/mL (10.0-30.0)
[2022-05-13] MEDS ORDERED: Ondansetron PF 4 MG/2 ML Vial ONE (07:28)
[2022-05-13 11:03] LABS: ALT (SGPT) 204 U/L (8-55); AST (SGOT) 563 U/L (5-34); Albumin 2.9 g/dL (3.4-4.8); Alkaline Phosphatase 82 U/L (40-110); Anion Gap 17 mmol/L (10-20); BUN (Urea Nitrogen) 16 mg/dL (8.4-25.7); Bilirubin, Total 7.4 mg/dL (0.2-1.2); Calc. Creatinine Clearance 0 mL/min (70-130); Calcium 7.8 mg/dL (7.8-10.44); Carbon Dioxide 18 mmol/L (23-31); Chloride 94 mmol/L (98-107); Estimated GFR 43; Globulin 2.6 g/dL (2.4-3.5); Glucose 181 mg/dL (80-115); Protein, Total 5.5 g/dL (5.8-8.1); Sodium 126 mmol/L (136-145)
[2022-05-13 11:09] LABS: Potassium 2.6 mmol/L (3.5-5.1)
[2022-05-13] MEDS ORDERED: Potassium Chloride 20 MEQ TAB ONE (12:00)
== END 2022-05-13 12:15 | disposition short-term general hospital (02) ==
LOC: ERS 03:57
DX: K72.90 Hepatic failure, unspecified without coma (principal); E87.20 Acidosis, unspecified; I10 Essential (primary) hypertension; K21.9 Gastro-esophageal reflux disease without esophagitis; Z20.822 Contact with and (suspected) exposure to COVID-19
CPT/HCPCS: 70450; 71045; 72125; 74176; 80053 ×2; 80306; 80307 ×2; 82010; 82140; 82805; 82962; 83605; 83690; 83880; 84484; 85025; 85610 ×2; 85730 ×2; 87040; 87086; 93005; J0132; J1451; U0002; 36415; 36416; 80143; 81003; 81015; 96365; 96367; 96374; 96375; 96376; C9113; J0696; J2354; J2405; J3411; J3475; J3490; J7070; Q0162

== ENCOUNTER 2022-05-21 10:34 | Emergency (ER) | payer MEDICARE, OTHER ==
[2022-05-21 11:45] LABS: #Basophils 0.1 thou/uL (0.0-0.2); #Eosinphils 0.2 thou/uL (0.0-0.7); #Lymphocytes 0.6 thou/uL (1.20-3.40); #Monocytes 0.9 thou/uL (0.11-0.59); #Neutrophils 5.1 thou/uL (1.40-6.50); %Eosinophils 2.6 % (0.0-10.0); %Lymphocytes 9.2 % (21.0-51.0); %Monocytes 13.3 % (0.0-10.0); %Neutrophils 73.9 % (42.0-75.0); Mean Corpuscular Hemoglobin 36.5 pg (27.0-31.0); Mean Platelet Volume 7.1 fL (7.4-10.4); Platelet Count 589 10x3/uL (130-400); RBC Distribution Width 12.2 % (11.5-14.5); Red Blood Cell (RBC) Count 2.18 mill/uL (4.70-6.10); White Blood Cell (WBC) Count 6.9 10x3/uL (4.8-10.8)
[2022-05-21] MEDS ORDERED: Iopamidol-370 76% 500 ML 1 ML ONE (11:58)
[2022-05-21 12:04] LABS: Prothrombin Time 13.6 sec (12.0-14.7)
[2022-05-21 12:05] LABS: PTT 36.3 sec (22.9-36.1)
[2022-05-21 12:08] LABS: ALT (SGPT) 31 U/L (8-55); AST (SGOT) 43 U/L (5-34); Albumin 3.4 g/dL (3.4-4.8); Alkaline Phosphatase 129 U/L (40-110); Anion Gap 11 mmol/L (10-20); BUN (Urea Nitrogen) 9 mg/dL (8.4-25.7); Bilirubin, Total 2.6 mg/dL (0.2-1.2); Calc. Creatinine Clearance 0 mL/min (70-130); Calcium 8.6 mg/dL (7.8-10.44); Carbon Dioxide 23 mmol/L (23-31); Chloride 99 mmol/L (98-107); Estimated GFR 66; Globulin 3.3 g/dL (2.4-3.5); Glucose 91 mg/dL (80-115); Potassium 3.2 mmol/L (3.5-5.1); Protein, Total 6.7 g/dL (5.8-8.1); Sodium 130 mmol/L (136-145)
[2022-05-21] MEDS ORDERED: Pantoprazole 80 MG, Admixture Fee 1 EACH in Sodium Chloride 0.9% 100 ML IVPB SCH (12:30)
[2022-05-21 12:47] LABS: Bilirubin Negative (Negative); Blood, Urine Negative (Negative); Clarity Clear (Clear); Glucose, Urine (Dipstick) Normal (Negative); Ketone, Urine Negative (Negative); Leukocyte Negative Leu/uL (Negative); Nitrite Negative (Negative); Protein, Urine (Dipstick) 10 mg/dL (Neg-Trace); Specific Gravity, Urine 1.013 (1.002-1.036); Urobilinogen Normal mg/dL (Less than 2); pH, Urine 6.5 (5.0-9.0)
== END 2022-05-21 16:00 | disposition home or self-care (01) ==
LOC: ERS 10:34
DX: D64.9 Anemia, unspecified (principal); K62.89 Other specified diseases of anus and rectum; K21.9 Gastro-esophageal reflux disease without esophagitis; I10 Essential (primary) hypertension
CPT/HCPCS: 36430; 74177; 80053; 81003; 85025; 85610; 85730; 86850; 86900; 86901; 86920; 96365; 96366; 99284; P9016; 36415; C9113; J3490

== ENCOUNTER 2022-05-25 18:26 | Emergency (ER) | payer MEDICARE, OTHER ==
[2022-05-25 19:07] LABS: #Basophils 0.1 thou/uL (0.0-0.2); #Eosinphils 0.3 thou/uL (0.0-0.7); #Monocytes 0.5 thou/uL (0.11-0.59); #Neutrophils 2.9 thou/uL (1.40-6.50); %Basophils 2.1 % (0.0-1.0); %Lymphocytes 21.6 % (21.0-51.0); %Monocytes 10.3 % (0.0-10.0); Hemoglobin 8.7 g/dL (14.0-18.0); Mean Corpuscular HGB CONC 33.7 g/dL (32.0-36.0); Mean Corpuscular Hemoglobin 35.1 pg (27.0-31.0); Platelet Count 639 10x3/uL (130-400); RBC Distribution Width 14.5 % (11.5-14.5); Red Blood Cell (RBC) Count 2.46 mill/uL (4.70-6.10); White Blood Cell (WBC) Count 4.8 10x3/uL (4.8-10.8)
[2022-05-25 19:21] LABS: ALT (SGPT) 15 U/L (8-55); AST (SGOT) 22 U/L (5-34); Albumin 3.4 g/dL (3.4-4.8); Alkaline Phosphatase 104 U/L (40-110); Anion Gap 14 mmol/L (10-20); BUN (Urea Nitrogen) 8 mg/dL (8.4-25.7); Bilirubin, Total 1.6 mg/dL (0.2-1.2); Calc. Creatinine Clearance 0 mL/min (70-130); Calcium 8.2 mg/dL (7.8-10.44); Carbon Dioxide 18 mmol/L (23-31); Chloride 104 mmol/L (98-107); Estimated GFR 57; Globulin 2.8 g/dL (2.4-3.5); Glucose 119 mg/dL (80-115); Potassium 3.2 mmol/L (3.5-5.1); Protein, Total 6.2 g/dL (5.8-8.1); Sodium 133 mmol/L (136-145)
== END 2022-05-25 22:30 | disposition home or self-care (01) ==
LOC: ERS 18:26
DX: R60.9 Edema, unspecified (principal); D64.9 Anemia, unspecified; K21.9 Gastro-esophageal reflux disease without esophagitis; I10 Essential (primary) hypertension
CPT/HCPCS: 36415; 71045; 80053; 83880; 84484; 85025; 93005; 93970

== ENCOUNTER 2022-06-30 14:13 | Emergency (ER) | payer MEDICARE, OTHER, MEDICAID | END 2022-06-30 15:12 | disposition left against medical advice (07) | LOC: ERS 14:13 | DX: Z53.29 Procedure and treatment not carried out because of patient's decision for other reasons (principal) ==

== ENCOUNTER 2022-08-07 15:27 | Inpatient (IN) | payer MEDICARE, MEDICAID ==
[2022-08-07] MEDS ORDERED: EPINEPHrine 1 MG/10 ML Abboject SYRINGE ONE (15:29)
[2022-08-07] MEDS ORDERED: Sodium Bicarb 50 MEQ/50 ML Abboject 8.4% SYRINGE ONE (15:29)
[2022-08-07] MEDS ORDERED: Calcium Chloride 1 GM/10 ML Abboject SYRINGE ONE (15:29)
[2022-08-07] MEDS ORDERED: Amiodarone 150 MG/3 ML VIAL ONE (15:29)
[2022-08-07] MEDS ORDERED: Dextrose 50% Abboject 50 ML SYRINGE ONE (15:31)
[2022-08-07] MEDS ORDERED: Insulin Regular 300 UNITS/3 ML VIAL ONE (15:31)
[2022-08-07 15:54] LABS: Actual Bicarbonate (HCO3a) 12.3 mEq/L (22-28); Analyzer IN Cardio ER; Base Excess (BEa) -20.2 mEq/L (-2.0 to +3.0); CO2 Tension 64.3 mmHg (35.0-45.0); Calcium, Ionized (arterial) 1.45 mmol/L (1.12-1.30); Carboxyhemoglobin (COHb) 0.3 gm% (0.0-3.0); Hematocrit-ABG 29 % (42.0-52.0); Hemoglobin (Hb) 9.7 g/dL (14.0-18.0); O2 Tension (PaO2), arterial 376.4 mmHg (> 80.0); Potassium - ABG Lab 3.14 mmol/L (3.70-5.30); Puncture Site LRA; pH, Arterial 6.899 (7.35-7.45)
[2022-08-07 15:55] LABS: ALV-art Gradient 256.225 mmHg (0-20)
[2022-08-07] MEDS ORDERED: Electrolyte Replacement Protocol FS SCH (16:14)
[2022-08-07] MEDS ORDERED: NOREPINEPHRINE 8 MG/250 ML-D5W 250 ML IVPB SCH (16:15)
[2022-08-07] MEDS ORDERED: Sodium Chloride 0.9% 1,000 ML IV SCH (16:15)
[2022-08-07] MEDS ORDERED: fentaNYL 50 mcg/mL 1 mL Vial ONE (16:21)
[2022-08-07 16:22] LABS: Bacteria/HPF None Seen HPF (None Seen); Bilirubin Negative (Negative); Blood, Urine Negative (Negative); Clarity Clear (Clear); Glucose, Urine (Dipstick) Normal (Negative); Ketone, Urine Trace mg/dL (Negative); Leukocyte Negative Leu/uL (Negative); Nitrite Negative (Negative); Protein, Urine (Dipstick) 30 mg/dL (Neg-Trace); RBC/HPF 0-3 HPF (0-3); Specific Gravity, Urine 1.014 (1.002-1.036); Urobilinogen Normal mg/dL (Less than 2); WBC/HPF 0-3 HPF (0-3); pH, Urine 6.5 (5.0-9.0)
[2022-08-07 16:22] LABS: #Neutrophils 4.3 thou/uL (1.40-6.50); %Basophils 0.4 % (0.0-1.0); %Eosinophils 0.5 % (0.0-10.0); %Lymphocytes 21.7 % (21.0-51.0); %Monocytes 0.7 % (0.0-10.0); %Neutrophils 75.1 % (42.0-75.0); Hemoglobin 8.7 g/dL (14.0-18.0); Mean Corpuscular HGB CONC 33.2 g/dL (32.0-36.0); Mean Corpuscular Hemoglobin 31.5 pg (27.0-31.0); Mean Corpuscular Volume 94.9 fl (78.0-98.0); Mean Platelet Volume 11.2 fL (7.4-10.4); RBC Distribution Width 14.4 % (11.5-14.5); Red Blood Cell (RBC) Count 2.76 mill/uL (4.70-6.10); White Blood Cell (WBC) Count 5.7 10x3/uL (4.8-10.8)
[2022-08-07 16:24] LABS: Platelet Count 64 10x3/uL (130-400)
[2022-08-07 16:29] LABS: Amphetamine Not Detected (NotDetected); Barbiturates Screen Not Detected (NotDetected); Benzodiazepine Screen Detected (NotDetected); Cocaine Metabolite Screen Not Detected (NotDetected); Methadone Not Detected (NotDetected); Methamphetamine Not Detected (NotDetected); Opiate Screen Not Detected (NotDetected); Oxycodone Screen Not Detected (NotDetected); Phencyclidine (PCP) Not Detected (NotDetected); THC/Cannabinoid Screen Detected (NotDetected); Tricyclic Screen Not Detected (NotDetected)
[2022-08-07 16:34] LABS: INR-International Normal Ratio 1.4; Prothrombin Time 17.8 sec (12.0-14.7)
[2022-08-07 16:35] LABS: PTT 42.4 sec (22.9-36.1)
[2022-08-07] MEDS ORDERED: Acetaminophen 650 MG Suppository PR PRN (16:43)
[2022-08-07] MEDS ORDERED: Ondansetron PF 4 MG/2 ML Vial IVP PRN (16:43)
[2022-08-07 16:45] LABS: ALT (SGPT) 44 U/L (8-55); AST (SGOT) 231 U/L (5-34); Albumin 2.8 g/dL (3.4-4.8); Alkaline Phosphatase 207 U/L (40-110); Anion Gap 28 mmol/L (10-20); BUN (Urea Nitrogen) 10 mg/dL (8.4-25.7); Bilirubin, Total 0.5 mg/dL (0.2-1.2); CK (CPK) 146 U/L (30-200); Calc. Creatinine Clearance 0 mL/min (70-130); Calcium 10.9 mg/dL (7.8-10.44); Carbon Dioxide 18 mmol/L (23-31); Chloride 99 mmol/L (98-107); Estimated GFR 43; Globulin 2.5 g/dL (2.4-3.5); Lipase 98 U/L (8-78); Potassium 3.3 mmol/L (3.5-5.1); Protein, Total 5.3 g/dL (5.8-8.1); Sodium 142 mmol/L (136-145)
[2022-08-07] MEDS ORDERED: Amiodarone 150 MG, Admixture Fee 1 EACH in Dextrose 5% in Water 100 ML IVPB SCH (16:45)
[2022-08-07] MEDS ORDERED: Fentanyl CADD 100 ML IV SCH ×2 (16:45→17:00)
[2022-08-07 16:46] LABS: Acetaminophen Less than 10.0 mcg/mL (10.0-30.0); Alcohol Less than 10 mg/dL (Less than 10); Salicylate Less than 8.0 mg/dL (15.0-30.0)
[2022-08-07] MEDS ORDERED: Ventilator Sedation Protocol FS SCH (16:46)
[2022-08-07 16:50] LABS: Glucose 458 mg/dL (80-115)
[2022-08-07] MEDS ORDERED: Morphine 2 MG/ML VIAL SLOW IVP PRN (17:00)
[2022-08-07] MEDS ORDERED: Propofol 1,000 MG/100 ML VIAL IV PRN (17:00)
[2022-08-07] MEDS ORDERED: Fentanyl BOLUS 250 ML IVPB PRN (17:00)
[2022-08-07] MEDS ORDERED: Lorazepam 2 MG/ML VIAL SLOW IVP PRN (17:00)
[2022-08-07] MEDS ORDERED: Propofol BOLUS 1,000 MG/100 ML VIAL IV PRN (17:00)
[2022-08-07] MEDS ORDERED: DISCONTINUE PREVIOUS NARCOTIC PAIN MEDICATIONS AND BENZODIAZEPINES FS SCH (17:00)
[2022-08-07 17:06] LABS: SARS-CoV-2 NAA Rapid Test Not Detected (NotDetected)
[2022-08-07] MEDS ORDERED: Heparin 10,000 UNITS/ 10 ML VIAL ONE (17:13)
[2022-08-07] MEDS ORDERED: Magnesium 5 GM/10 ML VIAL ONE (17:41)
[2022-08-07 17:45] LABS: CKMB 13.4 ng/mL (0-6.6)
[2022-08-07] MEDS ORDERED: Heparin 10,000 UNITS/ 10 ML VIAL SLOW IVP SCH (17:45)
[2022-08-07] MEDS ORDERED: Heparin 25,000 units/D5W 500 ML IVPB SCH (17:45)
[2022-08-07 17:54] VITALS: BMI 16.9
[2022-08-07 18:15] LABS: Hemoglobin 9.4 g/dL (14.0-18.0); Platelet Count 90 10x3/uL (130-400)
[2022-08-07 18:45] LABS: PTT Greater than 250.0 sec (22.9-36.1)
[2022-08-07] MEDS ORDERED: Potassium Chloride 20 MEQ in Premix Bag 1 BAG IVPB SCH ×2 (19:00→21:00)
[2022-08-07] MEDS ORDERED: HumaLOG 300 UNITS/3 ML VIAL SC PRN ×2 (19:19)
[2022-08-07] MEDS ORDERED: Dextrose 50% Abboject 50 ML SYRINGE SLOW IVP PRN (19:19)
[2022-08-07] MEDS ORDERED: Dextrose 5% in Water 1,000 ML IV PRN (19:19)
[2022-08-07] MEDS ORDERED: Amiodarone 450 MG in Dextrose 5% in Water 250 ML IVPB SCH (19:30)
[2022-08-07] MEDS ORDERED: Famotidine/PF 20 mg/2ml Vial SLOW IVP SCH (21:00)
[2022-08-07 21:33] LABS: Troponin I Greater than 45.000 ng/mL (< 0.028)
[2022-08-07 22:58] VITALS: TEMP 97.8
== END 2022-08-07 23:20 | disposition expired ==
LOC: SUATTDRO 15:27 → EDBD 15:27 → ERS 15:27 → CCU 15:39
PROVIDERS: ADMIT Internal Medicine; ATTEND Internal Medicine
PROC: 5A1935Z Respiratory Ventilation, Less than 24 Consecutive Hours (ICD-10-PCS; principal; 2022-08-07)
PROC: 5A2204Z Restoration of Cardiac Rhythm, Single (ICD-10-PCS; 2022-08-07)
PROC: 5A12012 Performance of Cardiac Output, Single, Manual (ICD-10-PCS; 2022-08-07)
PROC: 3E033XZ Introduction of Vasopressor into Peripheral Vein, Percutaneous Approach (ICD-10-PCS; 2022-08-07)
PROC: 0D9670Z Drainage of Stomach with Drainage Device, Via Natural or Artificial Opening (ICD-10-PCS; 2022-08-07)
PROC: 02HV33Z Insertion of Infusion Device into Superior Vena Cava, Percutaneous Approach (ICD-10-PCS; 2022-08-07)
PROC: 4A033R1 Measurement of Arterial Saturation, Peripheral, Percutaneous Approach (ICD-10-PCS; 2022-08-07)
DX: I47.21 Torsades de pointes (principal); I21.A1 Myocardial infarction type 2; E11.10 Type 2 diabetes mellitus with ketoacidosis without coma; J96.00 Acute respiratory failure, unspecified whether with hypoxia or hypercapnia; E87.4 Mixed disorder of acid-base balance; N17.9 Acute kidney failure, unspecified; G93.1 Anoxic brain damage, not elsewhere classified; Z66 Do not resuscitate; Z20.822 Contact with and (suspected) exposure to COVID-19; F14.10 Cocaine abuse, uncomplicated; F12.10 Cannabis abuse, uncomplicated; I46.2 Cardiac arrest due to underlying cardiac condition; I49.01 Ventricular fibrillation; K70.30 Alcoholic cirrhosis of liver without ascites; I12.9 Hypertensive chronic kidney disease with stage 1 through stage 4 chronic kidney disease, or unspecified chronic kidney disease; K21.9 Gastro-esophageal reflux disease without esophagitis; N40.1 Benign prostatic hyperplasia with lower urinary tract symptoms; R33.8 Other retention of urine; G62.1 Alcoholic polyneuropathy; F10.20 Alcohol dependence, uncomplicated; N18.9 Chronic kidney disease, unspecified; E11.22 Type 2 diabetes mellitus with diabetic chronic kidney disease; Z91.011 Allergy to milk products; Z79.899 Other long term (current) drug therapy; Z90.49 Acquired absence of other specified parts of digestive tract; Z98.890 Other specified postprocedural states
CPT/HCPCS: 36415; 36600; 70450; 71045; 80053; 80306; 80307; 81003; 81015; 82274; 82550; 82553; 82805; 83605; 83630; 83690; 83880; 84484; 85025; 85610; 85730; 86850; 86900; 86901; 87040; 87086; 87324; 87449; 87493; 93005; 93010; 94002; 94760; J0171; J0282; J1644; J1815; J3010; J3475; J3480; J7050; J7070; J7999